=== PATIENT | female | born 1960 | race Caucasian/White ===

== ENCOUNTER → 2018-03-02 14:18 | Outpatient (CLI) | payer OTHER, SELFPAY ==
[2018-03-02 15:51] LABS: Absolute Lymphocyte Count 1.33 X10^3/ul (0.83-4.51); Absolute Neutrophil Count 2.7 X10^3/uL (2.0-7.7); Basophil# 0.04 X10^3/uL; Basophil% 0.9 % (0-1); Eosinophil# 0.12 X10^3/uL; Eosinophils% 2.6 % (0-5); Hematocrit 40.8 % (37-47); Lymphocyte # 1.33 X10^3/ul (4.0); Lymphocyte % 28.9 % (19-41); Mean Corp Hgb Conc 31.9 g/gl (32-36); Mean Corpuscular Volume 94.2 fL (81-99); Mean Platelet Vol. 9.9 fl (6.2-12.0); Monocyte# 0.42 X10^3/uL; Monocyte% 9.1 % (0-10); Neutrophil # 2.69 X10^3/uL (2.7-7.7); Neutrophil % 58.5 % (47-70); Platelet Count 255 K/mm3 (150-450); RBC Distribution Width CV 14.1 % (11.6-14.6); RBC Distribution Width SD 48.7 fl (35.1-43.9); Red Blood Count 4.33 M/mm3 (4.2-5.4); White Blood Count 4.6 K/mm3 (4.4-11.0)
[2018-03-02 15:52] LABS: POSITIVE COUNT NO; POSITIVE DIFFERENTIAL NO; POSITIVE MORPHOLOGY NO
[2018-03-02 16:17] LABS: ALB/GLOB Ratio 1.2 RATIO (0.9-2.4); AST(SGOT) 23 U/L (15-37); Alanine Aminotransfer ALT/SGPT 42 U/L (13-56); Alkaline Phosphatase 84 U/L (45-117); Anion Gap 10 (5-15); BUN 18 mg/dL (7-18); BUN/Creat Ratio 24.2 RATIO (10-20); Calcium,Total 9.4 mg/dL (8.5-10.1); Chloride 106 mmol/L (98-107); Creatinine, Serum 0.74 mg/dL (0.55-1.02); EST Glomerular Filtration Rate 85 mL/min (>60); Est Glom Filt Rate - Afr Amer 103 mL/min (>60); Globulin 3.3 g/dL (2.2-4.2); Glucose 83 mg/dL (74-106); Lipase 124 U/L (73-393); Potassium 4.4 mmol/L (3.5-5.1); Protein, Total 7.3 g/dL (6.4-8.2); Sodium Level 143 mmol/L (136-145)
--- OUTSIDE RECORDS SUMMARY | 2018-06-04 02:07 | XMS RPT_ITS ---
:1960 Author Organization OHIP Care Team Providers Name Role Phone RACHEL MCGOWAN (AUTO SERVICE DISPATCHER) Attending Unavailable RACHEL MCGOWAN (AUTO SERVICE DISPATCHER) Referring Unavailable Saravanan Man Attending Unavailable Saravanan Man Primary Care Unavailable Saravanan Man Attending Unavailable Saravanan Man Referring Unavailable Saravanan Man Primary Care Unavailable Nohemy Pedersen Attending Unavailable Saravanan Man Referring Unavailable Alexia Amado Attending Unavailable Alexia Amado Referring Unavailable Saravanan Man Primary Care Unavailable PROBLEMS PROBLEMS DATE TYPE CONDITION / CODE ATTENDING STATUS SOURCE 04/06/2018 Unknown N31.9 - Alexia Amado Active [facility] dysfunction of Hospital bladder, Repository unspecified / N31.9(ICD-10) 04/06/2018 Unknown R33.9 - Retention Alexia Amado Active [facility] of urine, Community unspecified / Hospital R33.9(ICD-10) Repository 04/02/2018 Unknown R19.05 - Saravanan Man Active [facility] swelling, mass or Hospital lump / Repository R19.05(ICD-10) 03/04/2018 Active Encounter for NA Active [facility] screening mammogram [facility] [place] for malignant Repository neoplasm of breast / Z12.31(ICD-10) 03/04/2018 Active Inconclusive NA Active [facility] mammogram / [facility] [place] R92.2(ICD-10) Repository 03/04/2018 Active 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[facility] mastopathy of [facility] [place] unspecified breast Repository / N60.19(ICD-10) 03/02/2018 Unknown R10.33 - Magda Saravanan Active [facility] / R10.33(ICD-10) Hospital Repository 03/02/2018 Unknown R11.0 - Nausea / Magda Saravanan Active [facility] R11.0(ICD-10) [facility] Hospital Repository 03/02/2018 Unknown R10.9 - Unspecified Saravanan Man Active [facility] abdominal pain / Community R10.9(ICD-10) Hospital Repository PROCEDURES PROCEDURES No Procedure Records FoundRESULTS RESULTS DISCHARGE INSTRUCTION Observed: 04/06/2018 Status: F Source: [place] 10:59 AM [facility] REPOSITORY [facility] Medical Records Department [address] [place] [address] Instructions for Home/Discharge Instructions 04/06/18 1058 MR#: [id number] Acct: [id number] Name: VINNIE KATHLEEN Rep #: [id number] : 1960 57 From: Alexia Amado MD PCP: Saravanan Man MD Status: REG [facility] Discharge Diet: No Restrictions Discharge Activity: May Not Drive, May not drive while taking narcotic pain medications. May resume sexual activity in: 4 weeks Call your doctor if your incision/area has: Continuous Slow Oozing, Sudden Increased Bleeding, Increased Pain/ Swelling, Increased Redness, Foul Smelling Discharge Call your doctor if you observe: Fever of 101 or Higher, Inability to urinate, Shortness of breath, Chest pain, Calf discomfort, Uncontrolled pain Allergies/Adverse Reactions: Allergies ciprofloxacin [From Cipro] Allergy (Verified 04/02/18 13:59) Rash mycin's Adverse Reaction (Uncoded 04/02/18 13:59) disoriented Medications to take at Discharge Multivitamin [Multiple Vitamins] 1 each PO DAILY 04/02/18 Cephalexin [Keflex] 500 mg PO Q12 3 Days #6 cap 04/06/18 Hydrocodone Bitart/Apap 5-325 [Anson 5MG-325MG] 1 tab PO Q4H PRN PRN 7 Days #20 tab 04/06/18 The following prescriptions were given: Hydrocodone Bitart/Apap 5-325 [Anson 5MG-325MG] 1 tab PO Q4H PRN PRN 7 Days #20 tab PRN Reason: Pain Cephalexin [Keflex] 500 mg PO Q12 3 Days #6 cap Primary Care Physician: Saravanan Man MD [Primary Care Provider] - Test Results: Test results from this visit will be discussed in further detail at your follow-up appointment, if applicable. Please Follow Up With: Alexia Amado MD When: 1 week, call for appt 04/06/18 1059 <Electronically signed by Alexia Amado MD> Date Alexia Amado MD CC: Saravanan Man MD Signed OPERATIVE REPORT Observed: 04/06/2018 Status: F Source: [place] 10:58 AM [facility] REPOSITORY [facility] Medical Records Department [address] [place] [address] Operative Report 04/06/18 1048 MR#: [id number] Acct: [id number] Name: VINNIE KATHLEEN Rep #: [id number] : 1960 57 From: Alexia Amado MD PCP: Saravanan Man MD Status: REG [facility] Y Location: [place] [address] Problem List (1) Urinary retention Status: Acute (2) Neurogenic bladder Status: Acute (3) Urinary frequency Status: Acute Report of Operation Date of Procedure: 04/06/18 Pre-Operative Diagnosis: urinary retention, urinary frequency, neurogenic bladder Post-Operative Diagnosis: same, mildly stenotic urethra Surgery/Procedure Performed:: cystoscopy, urethral dilation, Interstim Stage 1 Description of Surgical Findings:: Lead on left side, pocket on right. Good response leads 1,2,3. Good curve and placement into S3. Type of Anesthesia:: General Description of Procedure: The patient is a 57-year-old female seen in the office for issues regarding urinary frequency urgency and urinary hesitation. Upon evaluation she was identified as having a hypoactive detrusor contraction with urinary retention and a postvoid residual greater than 500 cc. She was unable to undergo cystoscopic evaluation in the office secondary to discomfort. After informed consent and discussing the risks she agreed to proceed with evaluation via cystoscopy in addition to stage I InterStim trial. Was taken in the operating room and a MAC anesthesia was provided with the patient's on her cart. Anesthesia monitored the head, neck, airway, IV access, vital signs throughout the case. Once anesthesia was probably administered patient was placed in a frog-leg position was prepped and draped in usual sterile fashion. The flexible cystoscope was unable to be inserted under direct visualization and the urethral dilation was performed from 16 Maltese to 22 Maltese without difficulty. The scope easily passed through the urethra into the urinary bladder under direct visualization following dilation. There are nor no mucosal abnormalities identified including areas of erythema, mass. There is no detrusor hyper hypertrophy identified. There were no foreign bodies. Her ureteral orifices were located along the area of the trigone in correct anatomic position. At this point the urethra was closely visualized and there were no defects identified. The cystoscope was removed and the patient was cleaned. She was then placed onto a prone position on the operating room table. She was appropriately padded and secured to the table. She was then prepped and draped in usual sterile fashion for stage I InterStim. At this time using fluoroscopic visualization the S3 foramen was identified. The area was anesthetized with lidocaine on both sides. [place] were passed on both the patient's right and left side. A better response was obtained on the patient's left side and this S3 foramen intubation was used. The obturator of the needle was removed the guidewire is passed and a skin incision was made. The dilator was then used to open the S3 entry point and the lead was inserted using the curved stylette. The leads were tested and with the best positioning of the lead there were good responses on leads I, II and III with jesús and toe. The lead was left in this position and was tunneled to a pocket site on the patient's right side. Cauterization was used for hemostatic control. The boot was attached and then the lead resident service coordinator. This was tunneled in a cephalad position. The pocket site was closed using 3-0 interrupted suture followed by 4-0 Vicryl subcuticular suture. Steri-Strips were applied. The temporary battery was connected and the patient had OpSite securing it in position followed by cloth tape. The patient was then awakened and taken to the recovery room in good condition. There were no complications during this procedure. Grafts/Implants Used: Stage 1 Interstim - Complications None - Admit VTE Documentation VTE Present on Admission: No VTE Mechan Device Prophylaxis: None VTE Pharm Prophylaxis ordered?: No Reason prophylaxis not ordered:: Treatment Not Indicated 04/06/18 1058 <Electronically signed by Alexia Amado MD> Date Alexia Amado MD CC: Alexia Amado MD; Saravanan Man MD Signed PELVIS 1 OR 2 VIEWS Observed: 04/06/2018 Status: F Source: [place] 12:09 AM [facility] REPOSITORY [facility] Imaging Services [address] [place] [address] Pelvis 1 or 2 Views MR#: [id number] Acct: [id number] Name: VINNIE KATHLEEN Rep #: [id number] : 1960 F 57 From: Tan Blair MD PCP: Saravanan Man MD Status: [facility] Study: Pelvis 1 or 2 Views Date of Exam: 04/06/18 Exam# [id number] Ordering Dr: Alexia Amado MD STUDY: X-RAY - PELVIS REASON FOR EXAM: Female, 57 years old. InterStim therapy. TECHNIQUE: One view of the pelvis was obtained. COMPARISON: None. FINDINGS: Intraoperative imaging provided for IntraStent placement. The electrode is seen along the right posterior aspect of the pelvis. RAD/Pelvis 1 or 2 Views IMPRESSION: Imaging provided for InterStim therapy. Electronically Signed: Tan Blair MD at 12:39 EST Tel [phone], Service support , CC: Alexia Amado MD; Saravanan Man MD Neurology Stroke Physician: Signed ABDOMEN/PELVIS WITH Observed: 03/23/2018 Status: F Source: [place] CONTRAST 8:22 AM [facility] REPOSITORY [facility] Imaging Services [address] [place] [address] Abdomen/Pelvis WITH Contrast MR#: [id number] Acct: [id number] Name: VINNIE KATHLEEN Rep #: [id number] : 1960 F 57 From: Lázaro Dexter MD PCP: Saravanan Man MD Status: REG CLI Study: Abdomen/Pelvis WITH Contrast Date of Exam: 03/23/18 Exam# [id number] Ordering Dr: Saravanan Man MD STUDY: CT ABDOMEN AND PELVIS WITH CONTRAST REASON FOR EXAM: Female, 57 years old. Periumbilical pain. Hypogastric mass. RADIATION DOSAGE (If Supplied By Facility): CTDIvol = ( 11.09 ) mGy, DLP = ( 543.69 ) mGycm TECHNIQUE: Transaxial images were obtained from the dome of the diaphragm to the symphysis pubis with oral contrast. 100 ml of Isovue 300 contrast was administered. Sagittal and coronal images were reconstructed. Individualized dose optimization techniques were used for this CT. COMPARISON: None. FINDINGS: The visualized lung bases are clear. The visualized portions of the heart and pericardium are within normal limits. There are no calcified gallstones present. The liver is within normal limits. There are no suspicious hepatic lesions. The spleen is normal in size. The pancreas is within normal limits. The adrenal glands are within normal limits. There are no renal or ureteral stones. There is no hydronephrosis. There are no focal renal lesions. Normal visualized stomach. There is no bowel obstruction or inflammation. The appendix is visualized and appears normal. The aorta is normal in caliber. There is no abdominal or pelvic free air, free fluid, fluid collection or lymphadenopathy. The uterus is normal in contour. There is no abnormal soft tissue mass identified on this study. There are no destructive osseous lesions. CT/Abdomen/Pelvis WITH Contrast IMPRESSION: Unremarkable contrast-enhanced CT of the abdomen and pelvis. Electronically Signed: Lázaro Dexter, at 17:00 EST Tel , Service support , CC: Saravanan Man MD Neurology Stroke Physician: Signed PROGRESS Observed: 03/05/2018 Status: COMPLETED Source: [facility] 3:18 PM [facility] REPOSITORY HNO ID: [id number] Author: Soila Truong Service: (none) Author Type: (none) Type: Progress Notes Filed: 03/05/2018 3:19 PM Note Text: Pap logged and normal pap letter sent to patient. Soila Truong CNCO Observed: 03/04/2018 Status: COMPLETED Source: [facility] 11:28 AM [facility] REPOSITORY HNO ID: [id number] Author: Mammography Coordinator Service: (none) Author Type: Physician Type: Letter Filed: 03/08/2018 11:31 PM Note Text: March 04, 2018 PID: [id number] Vinnie Kathleen [address] [place] [address] Dear Ms. Kathleen, We are pleased to inform you that the results of your recent breast imaging exam on 03/04/2018 are normal. Your mammogram demonstrates that you have dense breast tissue, which could hide abnormalities. Dense breast tissue, in and of itself, is a relatively common condition. Therefore, this information is not provided to cause undue concern; rather, it is to raise your awareness and promote discussion with your health care provider regarding the presence of dense breast tissue in addition to other risk factors. Early detection of cancer is very important. We also understand recommendations regarding breast cancer screening are controversial. Please discuss with your primary care provider which strategy is best for you and whether a mammogram is right for you. Your imaging studies and report will be kept on file at [facility] as part of your permanent medical record and are available for your continuing care. Thank you for allowing us to help in meeting your health care needs. Sincerely, Dr. Du Interpreting Radiologist [facility] (Normal over 40) OSIEL SCREENING W BALDOMERO Observed: 03/04/2018 Status: F Source: [facility] 11:13 AM [facility] REPOSITORY * * *Final Report* * * DATE OF EXAM: Mar 04 2018 11:13AM [facility] 0582 - OSIEL SCREENING W BALDOMERO / PROCEDURE REASON: multiple diagnoses * * * * Physician Interpretation * * * * RESULT: #[id number] - OSIEL SCREENING W BALDOMERO BILATERAL DIGITAL SCREENING MAMMOGRAM TOMOSYNTHESIS WITH CAD: 03/04/2018 HISTORY: Multiple Diagnoses\ Screening Mammogram with BALDOMERO - patient reports NO breast symptoms /priors available for comparison. RESULT: TECHNIQUE: The study was acquired using full field digital technology and interpreted from soft copy. Digital Breast Tomosynthesis (DBT) images were obtained and used to assist in the interpretation of this examination. Current study was also evaluated with a Computer Aided Detection (CAD). Comparison is made to exams dated: 02/01/2016 mammogram, 09/29/2014 mammogram, 02/16/2013 mammogram, and 01/27/2012 mammogram - [facility]. The tissue of both breasts is extremely dense, which lowers the sensitivity of mammography. There are biopsy clips in the left breast. No significant masses, calcifications, or other findings are seen in either breast. There has been no significant interval change. IMPRESSION: There is no mammographic evidence of malignancy. A 1 year screening mammogram is recommended. Олег Du M.D. fa/penrad:03/04/2018 11:28:54 Gear Design Engineer(s): RT Mike(R)(M), [facility] letter sent: Normal over 40 Mammogram BI-RADS: 1 Negative Multiple national specialty organizations have released breast cancer screening guidelines for women at average risk for developing breast cancer - guidelines that are based on both evidence and opinion, yet differ on when to start and how often to screen for breast cancer. With representation from Breast Imaging, Internal Medicine, Women's Health, Family Medicine, and Medical/Surgical Oncology, the [facility] has carefully reviewed the data and reached the following consensus: 1) All women should engage in shared decision-making with their providers to decide when to start and how often to screen; 2) All women should have the opportunity to start screening mammography at age 40; 3) For women ages 45-55, we recommend annual screening mammograms; 4) For women ages 55 and over, we support both the transition from an annual to a biennial interval if this aligns more with patient's values and preferences, or continuation with annual screening; 5) All women should discuss with their providers when to stop screening mammograms. Neurology Stroke Physician: Waleska Transcribe Date/Time: Mar 04 2018 11:15A Dictated by: ОЛЕГ DU MD This examination was interpreted and the report reviewed and electronically signed by: ОЛЕГ DU MD on Mar 04 2018 11:28AM EST [id number] CBC W/DIFF, AUTOMATED Collected: 03/02/2018 Status: F Source: [place] 2:30 PM [facility] REPOSITORY TYPE CODE TESTS RESULT OUT OF RANGE REFERENCE UNITS LAB L100.1000 4.4-11.0 K/mm3 Normal WBC 4.6 LAB L100.1200 4.2-5.4 M/mm3 Normal RBC 4.33 LAB L100.1300 12.0-15.0 g/dl Normal HGB 13.0 LAB L100.1400 37-47 % Normal HCT 40.8 LAB L100.1500 81-99 fL Normal MCV 94.2 LAB L100.1600 27.0-32.0 pg Normal MCH 30.0 LAB L100.1700 32-36 g/gl Low MCHC 31.9 LAB L100.1810 11.6-14.6 % Normal RDW CV 14.1 LAB L100.1820 35.1-43.9 fl High RDW SD 48.7 LAB L100.1900 150-450 K/mm3 Normal PLT 255 LAB L100.2000 6.2-12.0 fl Normal MPV 9.9 LAB L100.2100 47-70 % Normal NEUT% 58.5 LAB L100.2200 19-41 % Normal LY% 28.9 LAB L100.2300 0-10 % Normal MONO% 9.1 LAB L100.2400 0-5 % Normal EO% 2.6 LAB L100.2500 0-1 % Normal BASO% 0.9 LAB L100.2550 0.0-0.9 % Normal IM GRAN % 0.000 Result Comment: IG% - Immature Granulocytes (promyelocytes, myelocytes and metamyelocytes) > 1% indicates that a LEFT SHIFT is Present. LAB L100.2620 2.0-7.7 X10 3/uL Normal Absolute Neut 2.7 LAB L100.2720 0.83-4.51 X10 3/ul Normal Absolute Lymph 1.33 Performed By: #### L100.0100 #### [facility] [address] [place], [address] COMPREHENSIVE METABOLIC Collected: 03/02/2018 Status: F Source: [facility] 2:30 PM [facility] REPOSITORY TYPE CODE TESTS RESULT OUT OF RANGE REFERENCE UNITS LAB L501.0100 74-106 mg/dL Normal GLU 83 Result Comment: Please note revised GLUCOSE reference range effective 2017. LAB L501.1000 7-18 mg/dL Normal BUN 18 LAB L501.1100 0.55-1.02 mg/dL Normal CREAT,SERUM 0.74 Result Comment: The validity of the calculated GFR AND GFRAA in patients over 70 years has not been determined. Clinical correlation is essential. LAB L501.1110 >60 mL/min Normal EST GFR 85 Result Comment: Non- GFR Calc LAB L501.1115 >60 mL/min Normal EST GFR - AA 103 Result Comment: GFR Calc LAB L501.1300 10-20 RATIO High BUN/CRE 24.2 LAB L501.1500 6.4-8.2 g/dL T Normal PROT 7.3 LAB L501.1800 3.2-5.0 g/dL Normal ALB 4.0 LAB L501.1950 2.2-4.2 g/dL Normal GLOB 3.3 LAB L501.2000 0.9-2.4 RATIO Normal A/G 1.2 LAB L501.2200 8.5-10.1 mg/dL CA Normal 9.4 LAB L501.4100 15-37 U/L Normal AST 23 Result Comment: Slight Hemolysis, Result may be falsely increased. LAB L501.4305 45-117 U/L Normal ALK P 84 LAB L501.4405 13-56 U/L Normal ALT 42 LAB L501.4600 0.20-1.00 mg/dL Normal T BILI 0.40 LAB L501.5300 136-145 mmol/L Normal NA 143 LAB L501.5600 3.5-5.1 mmol/L Normal K 4.4 Result Comment: Slight Hemolysis, Result may be falsely increased. LAB L501.5900 98-107 mmol/L Normal CL 106 LAB L501.6100 21.0-32.0 mmol/L Normal CO2 27.0 LAB L501.6200 5-15 Normal GAP 10 Performed By: #### L500.4050, L501.2450 #### [facility] [address] [facility] [address] [facility] [place], [place], [address] LIPASE Collected: 03/02/2018 Status: F Source: [place] 2:30 PM [facility] REPOSITORY TYPE CODE TESTS RESULT OUT OF RANGE REFERENCE UNITS LAB L501.2450 73-393 U/L Normal LIPASE 124 Performed By: #### L500.4050, L501.2450 #### [facility] [address] [facility] [place], [place], [address] HPV W/GENOTYPE Collected: 02/25/2018 Status: F Source: [facility] 11:05 AM [facility] REPOSITORY TYPE CODE TESTS RESULT OUT OF REFERENCE UNITS RANGE LAB HPVT16 HPV HighRisk Negative for Type 16 HPV DNA high risk type 16 by PCR. LAB HPVT18 HPV HighRisk Negative for Type 18 HPV DNA high risk type 18 by PCR. LAB HPVHRO HPV HighRisk Negative for Other HPV DNA high risk types: 31,33,35,39,45 ,51,52,56,58,5 9,66,68 by PCR. Result Comment: This test was developed and its performance characteristics determined by [facility]'s [facility] [place] ([facility]). It has not been cleared or approved by the FDA. -[facility] is regulated under CLIA as qualified to perform high-complexity testing. This test is used for clinical purposes. It should not be regarded as inv estigational or for research. Performed By: #### HPVHRR #### [facility] [address] [place], [place] [address] CYTOLOGY Observed: 02/25/2018 Status: C Source: [facility] 11:05 [facility] REPOSITORY ADDITIONAL PROCEDURES PRESENT Specimen originated from [facility] Specimen #: [id number] Submitting Physician: RACHEL MCGOWAN SPECIMEN SUBMITTED A: CERVICAL, SCREENING, FLUID FINAL DIAGNOSIS A. CERVICAL, SCREENING, FLUID Satisfactory for interpretation. Negative for intraepithelial lesion or malignancy. Atrophic specimen. This specimen has been analyzed by the ThinPrep Imaging System, an automated imaging and review system, which assists the laboratory in evaluating cells on ThinPrep Pap tests. Following automated imaging, selected gabriel from every slide are reviewed by a safe and vault service mechanic. ALISHA Toribio(ASCP) (Electronic Signature) ADDITIONAL PROCEDURE(S) HUMAN PAPILLOMA VIRUS Date Ordered: 02/26/2018 Date Reported: 03/01/2018 Procedure Results and Interpretation Negative for HPV DNA high risk type 16 by PCR. Negative for HPV DNA high risk type 18 by PCR. Negative for HPV DNA high risk types: 31,33,35,39,45,51,52,56,58,59,66,68 by PCR. This test was developed and its performance characteristics determined by [facility]'s [facility]rick Jeong [facility] [place] ([facility]). It has not been cleared or approved by the FDA. -[facility] is regulated under CLIA as qualified to perform high-complexity testing. This test is used for clinical purposes. It should not be regarded as investigational or for research. CLINICAL DATA ROUTINE EXAM, HPV Testing: Yes, automatic HPV patients over 30 Date of Last Menstrual Period: Postmenopausal STAINS A: CERVICAL, SCREENING, FLUID THIN PREP TRIPPER Juliane Miller M.D., Contract Specialist Date of Report: 03/05/2018 Date of Procedure: 02/25/2018 Date of Receipt: 02/26/2018 Submitted by: RACHEL MCGOWAN Location: [facility] Diagnostic interpretation performed at [facility], [address] [place] [address]. The Pap Smear is a screening test for cervical cancer. False negative results occur with all screening tests, emphasizing the need for rescreening at recommended intervals, and clinical correlation. PROGRESS Observed: 02/25/2018 Status: COMPLETED Source: [facility] 10:25 AM [facility] REPOSITORY HNO ID: [id number] Author: Rachel Mcgowan Service: (none) Author Type: Nurse Practitioner Type: Progress Notes Filed: 02/25/2018 11:50 AM Note Text: Vinnie Kathleen is a 57 year old who presents for her annual gynecologic exam with complaints, bladder issues. The lack of urinating urge-she know she has to urinate when she starts to get pain in the lower abdominal/pelvic and then can't start a stream and only dribbles urine-never has a strong stream. Postmenopausal: Yes HRT use: No. Last Pap: 2013 normal HPV: 2013 negative History of abnormal pap: Yes Last mammogram: 2016 normal History of abnormal mammogram: Yes benign Sexually active: Yes Pain with intercourse: Yes Postcoital bleeding: No Hot flashes: No Night sweats: No Vaginal dryness: Yes Obstetric History T2 L2 SAB0 TAB0 Ectopic0 Multiple0 Live Births0 PAST MEDICAL HISTORY Diagnosis Date - Back pain - Headache - Kidney stone - Localization-related (focal) (partial) epilepsy and epileptic syndromes with simple partial seizures, without mention of intractable epilepsy As child, age 4-8, was on meds into her 30s PAST SURGICAL HISTORY Procedure Laterality Date - BX BREAST PERC VACUUM/ROTN 12/31/10 Left - benign - COLONOSCOP W/ OR W/O BRSH SPEC 04/13/13 Colonoscopy - CYST ASPIRATION right breast - CYST ASPIRATION left breast - EGD W/O OR W/BRUSH/WASH 04/13/13 EGD - PAST SURGICAL HISTORY OF 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 - Alcohol use No REVIEW OF SYSTEMS Abdomen: No abdominal pain, nausea, vomiting, diarrhea, or constipation. No bloating, early satiety, indigestion, or increased flatulence. Bladder: does not have the urge to urinate and will only dribble urine when she does go- denies any incontinence Breast: No breast lumps, nipple d/c, overlying skin changes, redness or skin retraction Allergies and current medication updated:Yes EXAM: BP 120/68 Ht 5' 2 (1.58m) Wt 159 lb 6.4 oz (72.3kg) LMP 09/02/2011 BMI 29.15 kg/(m2). GENERAL: pleasant, female in no apparent distress HEENT: Normocephalic, atraumatic, mucus membranes moist and no lesions NECK: Supple, full range of motion, no adenopathy and thyroid normal DERMATOLOGY: Normal, without lesions, non-icteric and non-hirsute BREAST: soft, non-tender, symmetric, no dominant mass, normal nipple-areolar complex, no lymphadenopathy, no nipple discharge and fibrocystic changes CHEST: Normal inspiratory effort ABDOMEN: soft, non-tender and no masses PELVIC: external genitalia normal, normal Bartholin's glands, urethra, Brandermill's glands, no vulvar lesions, no cervical lesions, good vaginal support, physiologic discharge present, normal appearing perineal body and perianal region BIMANUAL: uterus normal size, shape and consistency, no adnexal masses, non-tender and no cervical motion tenderness RECTOVAGINAL: deferred. NEURO: alert and oriented x3,exam grossly non-focal EXTREMITIES: normal ASSESSMENT/PLAN: 1) Health maintenance: Pap done with HPV. Mammogram ordered Nutrition, exercise and routine health maintenance exams reviewed. Calcium/Vitamin D supplementation information provided. Consult to Dr Amado for lack of urinary urge 2) Follow up one year or sooner as needed Rachel Mcgowan APRN.CNP CNOV Observed: 02/25/2018 Status: COMPLETED Source: [place] [address] [facility] 10:15 AM [facility] [place] REPOSITORY Office Visit (WOOB) VINNIE KATHLEEN ([id number]) 1960 F Date Time Provider Department 02/25/18 10:15 AM RACHEL MCGOWAN (ANA ROSA) WOOB During your visit today, we recorded the following information about you: Blood pressure Weight Height 120/68 72.3 kg 1.575 m Rachel Mcgowan APRN.CNP 02/25/2018 11:50 AM Signed Vinnie Kathleen is a 57 year old who presents for her annual gynecologic exam with complaints, bladder issues. The lack of urinating urge-she know she has to urinate when she starts to get pain in the lower abdominal/pelvic and then can't start a stream and only dribbles urine-never has a strong stream. Postmenopausal: Yes HRT use: No. Last Pap: 2013 normal HPV: 2013 negative History of abnormal pap: Yes Last mammogram: 2015 normal History of abnormal mammogram: Yes benign Sexually active: Yes Pain with intercourse: Yes Postcoital bleeding: No Hot flashes: No Night sweats: No Vaginal dryness: Yes Obstetric History T2 L2 SAB0 TAB0 Ectopic0 Multiple0 Live Births0 PAST MEDICAL HISTORY Diagnosis Date - Back pain - Headache - Kidney stone - Localization-related (focal) (partial) epilepsy and epileptic syndromes with simple partial seizures, without mention of intractable epilepsy As child, age 4-8, was on meds into her 30s PAST SURGICAL HISTORY Procedure Laterality Date - BX BREAST PERC VACUUM/ROTN 12/31/10 Left - benign - COLONOSCOP W/ OR W/O BRSH SPEC 04/13/13 Colonoscopy - CYST ASPIRATION right breast - CYST ASPIRATION left breast - EGD W/O OR W/BRUSH/WASH 04/13/13 EGD - PAST SURGICAL HISTORY OF 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 - Alcohol use No REVIEW OF SYSTEMS Abdomen: No abdominal pain, nausea, vomiting, diarrhea, or constipation. No bloating, early satiety, indigestion, or increased flatulence. Bladder: does not have the urge to urinate and will only dribble urine when she does go- denies any incontinence Breast: No breast lumps, nipple d/c, overlying skin changes, redness or skin retraction Allergies and current medication updated:Yes EXAM: BP 120/68 Ht 5' 2 (1.58m) Wt 159 lb 6.4 oz (72.3kg) LMP 09/02/2011 BMI 29.15 kg/(m2). GENERAL: pleasant, female in no apparent distress HEENT: Normocephalic, atraumatic, mucus membranes moist and no lesions NECK: Supple, full range of motion, no adenopathy and thyroid normal DERMATOLOGY: Normal, without lesions, non-icteric and non-hirsute BREAST: soft, non-tender, symmetric, no dominant mass, normal nipple-areolar complex, no lymphadenopathy, no nipple discharge and fibrocystic changes CHEST: Normal inspiratory effort ABDOMEN: soft, non-tender and no masses PELVIC: external genitalia normal, normal Bartholin's glands, urethra, Brandermill's glands, no vulvar lesions, no cervical lesions, good vaginal support, physiologic discharge present, normal appearing perineal body and perianal region BIMANUAL: uterus normal size, shape and consistency, no adnexal masses, non-tender and no cervical motion tenderness RECTOVAGINAL: deferred. NEURO: alert and oriented x3,exam grossly non-focal EXTREMITIES: normal ASSESSMENT/PLAN: 1) Health maintenance: Pap done with HPV. Mammogram ordered Nutrition, exercise and routine health maintenance exams reviewed. Calcium/Vitamin D supplementation information provided. Consult to Dr Amado for lack of urinary urge 2) Follow up one year or sooner as needed Rachel Mcgowan APRN.ANA ROSA Truong 03/05/2018 3:19 PM Signed Pap logged and normal pap letter sent to patient. Soila Truong Referring Provider: SELF [[id number]] Allergies As of Date: 02/25/2018 Noted Allergy Reaction ACROMYCIN (TETRACYCLINE) 11/13/2006 1 - Mental Status Change CIPROFLOXACIN 02/25/2018 1 - Mental Status Change 2 - Rash mycins [Other] 11/13/2006 Date Reviewed: 02/25/2018 Reviewed by: Rachel (Ana Rosa) Roslyn - Fully Assessed Reason for Visit: Yearly Exam [187] Primary Visit Diagnosis:Encounter for gynecological examination (general) (routine) without abnormal findings [Z01.419] Other Visit Diagnoses:Encounter for screening for human papillomavirus (HPV) [Z11.51] Pap smear for cervical cancer screening [Z12.4] Encounter for screening mammogram for breast cancer [Z12.31] Dense breast [R92.2] Fibrocystic breast disease (FCBD), unspecified laterality [N60.19] History of urinary urgency [Z87.448] Order(s):PAP FLUID CERVICAL SCREENING [3724841] Order #: [id number]. #:[id number] OSIEL SCREENING W BALDOMERO [3303043] Order #: [id number] FUTURE CONSULT TO UROLOGY [9041] Order #: [id number]: 1 HPV W/GENOTYPE [SQHPVHRR] Order #: [id number]. #:[id number] Prescriptions as of 02/25/2018 Sig: COMPOUNDED PRESCRIPTION serrapeptase enzyme * MULTIPLE VITAMIN TABLET Take one(1) tablet daily. Problem List As Of Date 02/25/2018 Noted Resolved DIFFUS CYSTIC MASTOPATHY [N60.19] INVALID FOR* SHORTNESS OF BREATH [R06.02] INVALID FOR* Fibromyalgia [M79.7] INVALID FOR* Family History of Cerebrovascular Accident (CVA*INVALID FOR* SVT (supraventricular tachycardia) [I47.1] INVALID FOR* Osteopenia [M85.80] INVALID FOR* More... Abnormal mammogram, unspecified [R92.8] INVALID FOR* Nontoxic multinodular goiter [E04.2] INVALID FOR* Disposition: Return in 1 year (on 02/25/2019) for Annual Exam. Follow-up and Disposition History Recorded Letter Text Rachel Mcgowan CNP [facility] [address], [place] [address] Vinniegaudencio Kathleen [address] [facility] [address] 03/05/2018 [facility]: [id number] Dear Vinnie, We are pleased to inform you that your recent Pap Test was within normal limits. Because Pap tests are so effective in the early detection of cervical cancer, you are encouraged to continue having the test at regular intervals. You will be due for a 1 year Gynecological Exam after this date 02/25/2019. If you have any questions regarding the above information, do not hesitate to call our office at between the hours of 8:00 a.m. and 5:00 p.m. Sincerely, Rachel Mcgowan CNP Encounter Status:Closed by RACHEL MCGOWAN on 02/25/18 ALLERGIES ALLERGIES DATE TYPE / CODE NAME / CODE REACTION SEVERITY SOURCE Drug ciprofloxacin/F00 Rash Unknown [place] 9 Allergy/[id number]( [id number](RXNORM) [facility]) Hospital Repository Miscellaneous mycin's DISORIENTED Unknown [place] 9 Allergy/253196013( [facility]) Hospital Repository DRUG CIPROFLOXACIN Mental [facility] 8 INGREDI/052511485( [facility] SNOMED CT) [place] Repository DRUG TETRACYCLINE Mental g [place] 7 INGREDI/596615269( [facility] SNOMED CT) [place] Repository Miscellaneous OTHER [place] 7 Allergy/295569067( [facility] SNOMED CT) [place] Repository ENCOUNTERS ENCOUNTERS ADMIT/DISCHARGE ACCOUNT ADMITTING ENCOUNTER LOCATION SOURCE NUMBER CLASS 04/06/2018/04/06/19 [id number] Ambulatory [place] [facility] ing:SDCRoom: Repository AC09 03/23/2018 [id number] [facility] 03/04/2018/03/04/20 [id number] Ambulatory [address] Repository 03/02/2018 [id number] Ambulatory [place] ing:BFHLAB Repository 02/25/2018/03/01/20 [id number] Ambulatory [address] Repository 06/16/2017 [id number] Ambulatory BMSBuilding:Moiz Tinajero MS.[facility] Repository PAYERS PAYERS ENCOUNTER GUARANTOR PAYER SUBSCRIBER SOURCE 04/06/2018 VINNIE Primary VINNIE [place] [id number] Insurance[facility] [address] [id number] [address]Qoj: Number: Repository [id number] (HP) Date:8344-03-24[address], [place] [address]UA: 04/06/2018 Secondary NOT GIVENUNK [place] Insurance:SELF PAY [facility] Number: Effective Repository Date:2018-04-01 03/23/2018 VINNIE Primary VINNIE [place] [id number] Insurance:UNITED TH BARRANQUITASDOB: [facility], [place] [id number] [id number] County Medical Center [address]Rqj: Number: Repository [id number] (HP) Date:5448-05-17[address], [place] [address]GO: 03/23/2018 Secondary NOT GIVENUNK [place] Insurance:SELF PAY [facility] Number: Effective Repository Date:2018-03-10 03/02/2018 VINNIE Primary VINNIE [place] [id number] Insurance:[facility]: [facility], CARE [address]Slfnys [id number] County Medical Center [address]Lvq: Number: Repository [id number] (HP) Date:6535-68-31[address], [place] [address]XW: 03/02/2018 Secondary NOT GIVENUNK [place] Insurance:SELF PAY [facility] Number: Effective Repository Date:2018-03-02 06/16/2017 Vinnie Primary Vinnie [place] [id number] Insurance[facility] [address]Woudru [id number] County Medical Center [address]Not: Number: Repository [id number] (HP) Date:4845-53-29[address], [place] [address]FX: 06/16/2017 Secondary NOT GIVENUNK [place] Insurance:SELF PAY [facility] Number: Effective Repository Date:2017-05-29
== END ==
LOC: BFHLAB 14:27
PROVIDERS: Family Provider Family Medicine; PCP Family Medicine; Visit Provider Family Medicine
DX: R10.33 Periumbilical pain (principal); R11.0 Nausea; R10.9 Unspecified abdominal pain
CPT/HCPCS: 36415; 80053; 83690; 85025

== ENCOUNTER → 2018-03-23 08:17 | Outpatient (CLI) | payer OTHER, SELFPAY ==
--- NOTE | 2018-03-23 08:21 | CT_ITS ---
STUDY: CT ABDOMEN AND PELVIS WITH CONTRAST REASON FOR EXAM: Female, 57 years old. Periumbilical pain. Hypogastric mass. RADIATION DOSAGE (If Supplied By Facility): CTDIvol = ( 11.09 ) mGy, DLP = ( 543.69 ) mGycm TECHNIQUE: Transaxial images were obtained from the dome of the diaphragm to the symphysis pubis with oral contrast. 100 ml of Isovue 300 contrast was administered. Sagittal and coronal images were reconstructed. Individualized dose optimization techniques were used for this CT. COMPARISON: None. FINDINGS: The visualized lung bases are clear. The visualized portions of the heart and pericardium are within normal limits. There are no calcified gallstones present. The liver is within normal limits. There are no suspicious hepatic lesions. The spleen is normal in size. The pancreas is within normal limits. The adrenal glands are within normal limits. There are no renal or ureteral stones. There is no hydronephrosis. There are no focal renal lesions. Normal visualized stomach. There is no bowel obstruction or inflammation. The appendix is visualized and appears normal. The aorta is normal in caliber. There is no abdominal or pelvic free air, free fluid, fluid collection or lymphadenopathy. The uterus is normal in contour. There is no abnormal soft tissue mass identified on this study. There are no destructive osseous lesions. CT/Abdomen/Pelvis WITH Contrast IMPRESSION: Unremarkable contrast-enhanced CT of the abdomen and pelvis. Electronically Signed: Lázaro Dexter, at 17:00 EST Tel , Service support ,
== END ==
PROVIDERS: Family Provider Family Medicine; PCP Family Medicine; Referring Provider Family Medicine; Visit Provider Family Medicine
DX: R19.05 Periumbilic swelling, mass or lump (principal); R10.33 Periumbilical pain; R11.0 Nausea
CPT/HCPCS: 74177; Q9967

== ENCOUNTER 2018-04-06 06:59 | Day surgery (SDC) | payer OTHER, SELFPAY ==
[2018-04-06] VITALS (7 sets, daily range): BP systolic 96–110; BP diastolic 59–85; PULSE 56–90; RESP 16–18; TEMP 36.6–36.8; O2SAT 97–100; BMI 29.2
[2018-04-06] MEDS: Cefazolin 2 GM in 0.9% Normal Saline 100 ML IV (09:08)
--- NOTE | 2018-04-06 09:39 | RAD_ITS ---
STUDY: X-RAY - PELVIS REASON FOR EXAM: Female, 57 years old. InterStim therapy. TECHNIQUE: One view of the pelvis was obtained. COMPARISON: None. FINDINGS: Intraoperative imaging provided for IntraStent placement. The electrode is seen along the right posterior aspect of the pelvis. RAD/Pelvis 1 or 2 Views IMPRESSION: Imaging provided for InterStim therapy. Electronically Signed: Tan Blair MD at 12:39 EST Tel [phone], Service support ,
--- NOTE | 2018-04-06 10:48 | PCM.OPRPT ---
Problem List (1) Urinary retention Status: Acute (2) Neurogenic bladder Status: Acute (3) Urinary frequency Status: Acute Report of Operation Date of Procedure: 04/06/18 Pre-Operative Diagnosis: urinary retention, urinary frequency, neurogenic bladder Post-Operative Diagnosis: same, mildly stenotic urethra Surgery/Procedure Performed:: cystoscopy, urethral dilation, Interstim Stage 1 Description of Surgical Findings:: Lead on left side, pocket on right. Good response leads 1,2,3. Good curve and placement into S3. Type of Anesthesia:: General Description of Procedure: The patient is a 57-year-old female seen in the office for issues regarding urinary frequency urgency and urinary hesitation. Upon evaluation she was identified as having a hypoactive detrusor contraction with urinary retention and a postvoid residual greater than 500 cc. She was unable to undergo cystoscopic evaluation in the office secondary to discomfort. After informed consent and discussing the risks she agreed to proceed with evaluation via cystoscopy in addition to stage I InterStim trial. Was taken in the operating room and a MAC anesthesia was provided with the patient's on her cart. Anesthesia monitored the head, neck, airway, IV access, vital signs throughout the case. Once anesthesia was probably administered patient was placed in a frog-leg position was prepped and draped in usual sterile fashion. The flexible cystoscope was unable to be inserted under direct visualization and the urethral dilation was performed from 16 [place] to 22 [place] without difficulty. The scope easily passed through the urethra into the urinary bladder under direct visualization following dilation. There are nor no mucosal abnormalities identified including areas of erythema, mass. There is no detrusor hyper hypertrophy identified. There were no foreign bodies. Her ureteral orifices were located along the area of the trigone in correct anatomic position. At this point the urethra was closely visualized and there were no defects identified. The cystoscope was removed and the patient was cleaned. She was then placed onto a prone position on the operating room table. She was appropriately padded and secured to the table. She was then prepped and draped in usual sterile fashion for stage I InterStim. At this time using fluoroscopic visualization the S3 foramen was identified. The area was anesthetized with lidocaine on both sides. Raymond were passed on both the patient's right and left side. A better response was obtained on the patient's left side and this S3 foramen intubation was used. The obturator of the needle was removed the guidewire is passed and a skin incision was made. The dilator was then used to open the S3 entry point and the lead was inserted using the curved stylette. The leads were tested and with the best positioning of the lead there were good responses on leads I, II and III with jesús and toe. The lead was left in this position and was tunneled to a pocket site on the patient's right side. Cauterization was used for hemostatic control. The boot was attached and then the lead forest fire fighters dispatcher. This was tunneled in a cephalad position. The pocket site was closed using 3-0 interrupted suture followed by 4-0 Vicryl subcuticular suture. Steri-Strips were applied. The temporary battery was connected and the patient had OpSite securing it in position followed by cloth tape. The patient was then awakened and taken to the recovery room in good condition. There were no complications during this procedure. Grafts/Implants Used: Stage 1 Interstim - Complications None - Admit VTE Documentation VTE Present on Admission: No VTE Mechan Device Prophylaxis: None VTE Pharm Prophylaxis ordered?: No Reason prophylaxis not ordered:: Treatment Not Indicated
--- NOTE | 2018-04-06 10:55 | OP.PCM_ITS ---
Problem List (1) Urinary retention Status: Acute (2) Neurogenic bladder Status: Acute (3) Urinary frequency Status: Acute Report of Operation Date of Procedure: 04/06/18 Pre-Operative Diagnosis: urinary retention, urinary frequency, neurogenic bladder Post-Operative Diagnosis: same, mildly stenotic urethra Surgery/Procedure Performed:: cystoscopy, urethral dilation, Interstim Stage 1 Description of Surgical Findings:: Lead on left side, pocket on right. Good response leads 1,2,3. Good curve and placement into S3. Type of Anesthesia:: General Description of Procedure: The patient is a 57-year-old female seen in the office for issues reg arding urinary frequency urgency and urinary hesitation. Upon evaluation she was identified as having a hypoactive detrusor contraction with urinary retention and a postvoid residual greater than 500 cc. She was unable to undergo cystoscopic evaluation in the office secondary to discomfort. After informed consent and discussing the risks she agreed to proceed with evaluation via cystoscopy in addition to stage I InterStim trial. Was taken in the operating room and a MAC anesthesia was provided with the patient's on her cart. Anesthesia monitored the head, neck, airway, IV access, vital signs throughout the case. Once anesthesia was probably administered patient was placed in a frog-leg position was prepped and draped in usual sterile fashion. The flexible cystoscope was unable to be inserted under direct visualization and the urethral dilation was performed from 16 [place] to 22 [place] without difficulty. The scope easily passed through the urethra into the urinary bladder under direct visualization following dilation. There are nor no mucosal abnormalities identified including areas of erythema, mass. There is no detrusor hyper hypertrophy identified. There were no foreign bodies. Her ureteral orifices were located along the area of the trigone in correct anatomic position. At this point the urethra was closely visualized and there were no defects identified. The cystoscope was removed and the patient was cleaned. She was then placed onto a prone position on the operating room table. She was appropriately padded and secured to the table. She was then prepped and draped in usual sterile fashion for stage I InterStim. At this time using fluoroscopic visualization the S3 foramen was identified. The area was anesthetized with lidocaine on both sides. [place] were passed on both the patient's right and left side. A better response was obtained on the patient's left side and this S3 foramen intubation was used. The obturator of the needle was removed the guidewire is passed and a skin incision was made. The dilator was then used to open the S3 entry point and the lead was inserted using the curved stylette. The leads were tested and with the best positioning of the lead there were good responses on leads I, II and III with jesús and toe. The lead was left in this position and was tunneled to a pocket site on the patient's right side. Ca uterization was used for hemostatic control. The boot was attached and then the lead compound specialist. This was tunneled in a cephalad position. The pocket site was closed using 3-0 interrupted suture followed by 4-0 Vicryl subcuticular suture. Steri-Strips were applied. The temporary battery was connected and the patient had OpSite securing it in position followed by cloth tape. The patient was then awakened and taken to the recovery room in good condition. There were no complications during this procedure. Grafts/Implants Used: Stage 1 Interstim - Complications None - Admit VTE Documentation VTE Present on Admission: No VTE Mechan Device Prophylaxis: None VTE Pharm Prophylaxis ordered?: No Reason prophylaxis not ordered:: Treatment Not Indicated
--- NOTE | 2018-04-06 10:59 | DCINST_ITS ---
Discharge Diet: No Restrictions Discharge Activity: May Not Drive, May not drive while taking narcotic pain medications. May resume sexual activity in: 4 weeks Call your doctor if your incision/area has: Continuous Slow Oozing, Sudden Increased Bleeding, Increased Pain/ Swelling, Increased Redness, Foul Smelling Discharge Call your doctor if you observe: Fever of 101 or Higher, Inability to urinate, Shortness of breath, Chest pain, Calf discomfort, Uncontrolled pain Allergies/Adverse Reactions: Allergies ciprofloxacin [From Cipro] Allergy (Verified 04/02/18 13:59) Rash mycin's Adverse Reaction (Uncoded 04/02/18 13:59) disoriented Medications to take at Discharge Multivitamin [Multiple Vitamins] 1 each PO DAILY 04/02/18 Cephalexin [Keflex] 500 mg PO Q12 3 Days #6 cap 04/06/18 Hydrocodone Bitart/Apap 5-325 [[place] 5MG-325MG] 1 tab PO Q4H PRN PRN 7 Days #20 tab 04/06/18 The following prescriptions were given: Hydrocodone Bitart/Apap 5-325 [[place] 5MG-325MG] 1 tab PO Q4H PRN PRN 7 Days #20 tab PRN Reason: Pain Cephalexin [Keflex] 500 mg PO Q12 3 Days #6 cap Primary Care Physician: Saravanan Man MD [Primary Care Provider] - Test Results: Test results from this visit will be discussed in further detail at your follow- up appointment, if applicable. Please Follow Up With: Alexia Amado MD When: 1 week, call for appt
--- OUTSIDE RECORDS SUMMARY | 2018-06-08 07:10 | XMS RPT_ITS ---
:1960 Author Organization OHIP Care Team Providers Name Role Phone RACHEL MCGOWAN (COPPERSMITH APPRENTICE) Referring Unavailable RACHEL MCGOWAN (ANA ROSA) Attending Unavailable Saravanan Man Attending Unavailable Saravanan Man Primary Care Unavailable Saravanan Man Attending Unavailable Saravanan Man Referring Unavailable Saravanan Man Primary Care Unavailable Nohemy Pedersen Attending Unavailable Saravanan Man Referring Unavailable Alexia Amado Attending Unavailable Alexia Amado Referring Unavailable Saravanan Man Primary Care Unavailable Saravanan Man Primary Care Unavailable Zahira Cabrales Attending Unavailable PROBLEMS PROBLEMS DATE TYPE CONDITION / CODE ATTENDING STATUS SOURCE 04/06/2018 Unknown N31.9 - Alexia Amado Active [facility] dysfunction of Hospital bladder, Repository unspecified / N31.9(ICD-10) 04/06/2018 Unknown R33.9 - Retention Alexia Amado Active [place] of urine, Community unspecified / Hospital R33.9(ICD-10) Repository 04/02/2018 Unknown R19.05 - Saravanan Man Active [facility] Periumbilic [facility] swelling, mass or Hospital lump / Repository R19.05(ICD-10) 03/04/2018 Active Encounter for NA Active [facility] screening mammogram [facility] [place] for malignant Repository neoplasm of breast / Z12.31(ICD-10) 03/04/2018 Active Inconclusive NA Active [facility] mammogram / [facility] [place] R92.2(ICD-10) Repository 03/04/2018 Active 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 breast Repository / N60.19(ICD-10) 03/02/2018 Unknown R10.33 - Saravanan Man Active [place] Periumbilical pain Community / R10.33(ICD-10) Hospital Repository 03/02/2018 Unknown R11.0 - Nausea / Saravanan Man Active [facility] R11.0(ICD-10) [facility] Hospital Repository 03/02/2018 Unknown R10.9 - Unspecified Saravanan Man Active [place] abdominal pain / Community R10.9(ICD-10) Hospital Repository PROCEDURES PROCEDURES No Procedure Records FoundRESULTS RESULTS DISCHARGE INSTRUCTION Observed: 04/08/2018 Status: F Source: [place] 9:18 PM [facility] REPOSITORY [facility] Medical Records Department [address] [place] [address] Discharge Instruction 04/08/18 1629 MR#: [id number] Acct: [id number] Name: VINNIE KATHLEEN Rep #: [id number] : 1960 57 From: Zahira Cabrales MD PCP: Saravanan Man MD Status: DEP ER ED Disposition - Plan for ED Patient: Disposition: Home or Assisted Living Chief Complaint: Other, Pain/Inj Instructions: ED Nausea Vomiting, ED Constipation Prescriptions: Ondansetron [Zofran Odt] 4 mg PO Q8H PRN PRN #15 tab PRN Reason: Nausea Referrals: Saravanan Man MD [Primary Care Provider] - Alexia Amado MD [STAFF PHYSICIAN] - 3-5 Days if not improving Additional Instructions: Use the Zofran as needed for any further nausea or vomiting. Drink plenty fluids to stay hydrated. Your constipation may be due to the Elberta. You may try a laxative or stool softener to take while you are on the Elberta. Miralax or dulcolax are possible options that you can buy over the counter. Make sure to keep your stimulator on low settings, and consult with your contact who is to help you monitor your stimulator settings. If you have any worsening of your condition or any new concerning symptoms, please return immediately to the emergency department for another evaluation. What to do if you have Problems For any increased pain, shortness of breath, bleeding, nausea or vomiting, chest pain, or any unexpected problems, contact your Primary Care Provider. Call [facility] ([phone]) or report to the closest Emergency Room. Call 911 if necessary. 04/08/182117 <Electronically signed by Zahira Cabrales MD> Date Zahira Cabrales MD Cosigner Signature (If Indicated): Date CC: Saravanan Man MD EMERGENCY DEPARTMENT Observed: 04/08/2018 Status: F Source: UNIVERSITY SUMMARY 9:18 PM [facility] REPOSITORY [facility] Medical Records Department [address] [place] [address] Emergency Department Summary 04/08/18 1513 MR#: [id number] Acct: [id number] Name: VINNIE KATHLEEN Rep #: [id number] : 1960 57 From: Zahira Cabrales MD PCP: Saravanan Man MD Status: DEP ER - ER Visit Summary Date of Service: 04/08/18 Chief Complaint: Vomiting History of Present Illness: The patient is a 57 F who presents with several episodes of vomiting 3 hours prior to presentation. Patient states she ate lunch and 10 minutes later began vomiting violently. She vomited multiple times, with the last episode being approximately 30 minutes prior to presentation. She denies any diarrhea. She had chills but no fever. No chest pain, shortness of breath, cough, congestion, rhinorrhea, headache, myalgias or arthralgias. 2 days ago patient had an InterStim device placed at the S3 level to help with urinary hesitancy. Patient states she has not had a bowel movement since then except for one very small hard one this morning. She normally has 3-4 bowel movements daily. She is on Elberta for pain. She denies any flatus. She complains of left perineal pain that feels like a deep bruise. She also complains of a bruised sensation on the right low back around the site of her procedure. Physical Examination: Vital signs: afebrile, hemodynamically stable, no hypoxia on room air General: well nourished, well developed, in no distress Skin: warm, dry, no rash, no pallor HEENT: normocephalic and atraumatic; PERRL, EOMI, moist mucous membranes Cardiovascular: Mildly tachycardic rate of 102 and regular rhythm without murmurs, no peripheral edema, 2+ pulses all distal extremities Respiratory: No increased work of breathing, lungs are clear to auscultation bilaterally, no rales, rhonchi or wheezing Abdominal: Abdomen is soft, nontender with hyperactive bowel sounds, no guarding or rebound, no masses, no distention Back: Clean bandaging holding a palpable battery pack in place on the right lumbar region. Surgical incision over the sacral midline region is covered with Steri-Strips, no bleeding, exudate, tenderness, induration or erythema surrounding. Mild tenderness to palpation along the right low back/hip without any induration, hematoma, or skin changes noted. MSK: Moves all extremities, no deformities, normal strength Neuro: Awake and alert, oriented 4. No facial droop, sensation and motor function intact and symmetric Test Results: Abnormal Lab Results Urine Color Yellow Urine Clarity Clear Medications Given Discontinued Medications Sodium Chloride () 1,000 mls @ 1,000 mls/hr IV .Q1H ONE Stop: 04/08/18 16:20 Last Admin: 04/08/18 15:39 Dose: 1,000 mls/hr Ondansetron HCl (Zofran) 4 mg IV X1 ONE Stop: 04/08/18 15:22 Last Admin: 04/08/18 15:39 Dose: 4 mg Emergency Department Course and Treatment: Presents for evaluation after several episodes of vomiting after eating lunch today. She is very well-appearing at this time and is not vomited at an hour at this point. Abdomen is soft and nontender, benign examination, and not consistent with bowel obstruction. Patient is on Elberta, which would explain the constipation. Patient was discussed with Alexia Amado, rest of the bandaging not be taken off, as it is holding the battery pack and wiring in place, and there are no incisions the bandaging. Patient's actual incision site is dry, intact, and she has no concerning findings for infection. Patient does complain of bruising in the perineal region and right low back, which is consistent with the procedures that were done on her. Patient was given IV fluids and antiemetics. Upon reevaluation, patient had improvement of her queasiness. Tolerating oral intake. Urinalysis was negative for infection. She was given a prescription for Zofran for further nausea. We discussed the use of a laxative or stool softener while she is taking Elberta. We discussed keeping her stimulator on a low setting, and she was staying in contact with the person she was referred to to help her with these settings. Discharged home in improved condition. Treatment Plan: [] Disposition: [] Impression: Vomiting illness, constipation This note was generated with Fugoo dictation software. It may contain incorrect words, spelling, and punctuation that were not noted in review of the chart prior to signing ED Disposition - Plan for ED Patient: Disposition: Home or Assisted Living Chief Complaint: Other, Pain/Inj Instructions: ED Constipation, ED Nausea Vomiting Prescriptions: Ondansetron [Zofran Odt] 4 mg PO Q8H PRN PRN #15 tab PRN Reason: Nausea Referrals: Alexia Amado MD [STAFF PHYSICIAN] - 3-5 Days if not improving Saravanan Man MD [Primary Care Provider] - Additional Instructions: Use the Zofran as needed for any further nausea or vomiting. Drink plenty fluids to stay hydrated. Your constipation may be due to the Elberta. You may try a laxative or stool softener to take while you are on the Elberta. Miralax or dulcolax are possible options that you can buy over the counter. Make sure to keep your stimulator on low settings, and consult with your contact who is to help you monitor your stimulator settings. If you have any worsening of your condition or any new concerning symptoms, please return immediately to the emergency department for another evaluation. What to do if you have Problems For any increased pain, shortness of breath, bleeding, nausea or vomiting, chest pain, or any unexpected problems, contact your Primary Care Provider. Call [facility] ([phone]) or report to the closest Emergency Room. Call 911 if necessary. 04/08/182117 <Electronically signed by Zahira Cabrales MD> Date Zahira Cabrales MD Cosigner Signature (If Indicated): Date CC: Saravanan Man MD URINALYSIS, COMPLETE Collected: 04/08/2018 Status: F Source: [place] 3:40 PM [facility] REPOSITORY Order Comment: How was Urine Obtained? CLEAN CATCH TYPE CODE TESTS RESULT OUT OF RANGE REFERENCE UNITS LAB L400.3000 Yellow COLOR Normal Yellow LAB L400.3050 Clear Normal CLARITY Clear LAB L400.3200 Normal mg/dl Normal GLUCOSE, UR Normal LAB L400.3300 Negative mg/dL Normal BILIRUBIN URINE Negative LAB L400.3400 Negative mg/dl High 50 KETONE UR LAB L400.3465 1.002-1.030 Normal SP.GR. DIPSTX 1.025 LAB L400.3550 5.0 - 8.0 pH UR Normal 6.0 LAB L400.3600 Negative mg/dl PROT Normal DIPSTX Negative LAB L400.3700 Normal mg/dl Normal UROBILI Normal LAB L400.3750 Negative Normal NITRITE UR Negative LAB L400.3780 Negative /ul High 10 OCCULT BLOOD-UR LAB L400.3800 Negative /ul LEUK Normal ESTERASE Negative LAB L400.4050 0-5 /hpf WBC 0 Normal SEEN LAB L400.4100 0-5 /hpf Normal RBC-UA 0-5 SEEN LAB L400.4150 5-10 /hpf SQUAM Normal EPI 0-5 SEEN LAB L400.4300 None Seen /hpf 0 Normal BACTERIA SEEN LAB L400.4350 <or=2+ /hpf 0 Normal MUCUS, URINE SEEN Performed By: #### L400.0001 #### [facility] Laboratory [address] [place], [address] Observed: 04/08/2018 Status: F Source: [place] CULTURE, URINE 3:40 PM [facility] REPOSITORY Urine Culture Culture exhibits no growth. Performed By: #### M100.0650 #### [facility] Laboratory [address] [place], [address] DISCHARGE INSTRUCTION Observed: 04/06/2018 Status: F Source: LI[place] 10:59 AM [facility] REPOSITORY [facility] Medical Records Department [address] [facility] [place] [address] Instructions for Home/Discharge Instructions 04/06/18 1058 MR#: [id number] Acct: [id number] Name: VINNIE KATHLEEN Rep #: [id number] : 1960 57 From: Alexia Amado MD PCP: Saravanna Man MD Status: REG [facility] Discharge Diet: No Restrictions Discharge Activity: May [...] Days #6 cap 04/06/18 Hydrocodone Bitart/Apap 5-325 [Elberta 5MG-325MG] 1 tab PO Q4H PRN PRN 7 Days #20 tab 04/06/18 The following prescriptions were given: Hydrocodone Bitart/Apap 5-325 [Elberta 5MG-325MG] 1 tab PO Q4H PRN PRN [...] OPERATIVE REPORT Observed: 04/06/2018 Status: F Source: UNIVERSITY 10:58 AM [facility] REPOSITORY [facility] Medical Records Department [address] [place] [address] Operative Report 04/06/18 1048 MR#: [id number] Acct: [id number] Name: VINNIE KATHLEEN Rep #: [id number] : 1960 57 From: Alexia Amado MD PCP: Saravanan Man MD Status: [facility] Y Location: [place] [address] Problem List (1) Urinary retention Status: Acute [...] the urethral dilation was performed from 16 [place] to 22 [place] without difficulty. The scope easily passed through [...] was anesthetized with lidocaine on both sides. [place] were passed on both the patient's right [...] boot was attached and then the lead industrial chemist. This was tunneled in a cephalad position. [...] 2 VIEWS Observed: 04/06/2018 Status: F Source: UNIVERSITY 12:09 AM [facility] REPOSITORY [facility] Imaging Services [address] [place] [address] Pelvis 1 or 2 Views MR#: [id number] Acct: [id number] Name: VINNIE KATHLEEN Rep #: [id number] : 1960 F 57 From: Tan Blair MD PCP: Saravanan Man MD Status: [facility] Study: Pelvis 1 or 2 Views Date of Exam: 04/06/18 Exam# [id number] Ordering Dr: Alexia Amado MD STUDY: X-RAY [...] Tan Blair MD at 12:39 EST Tel [phone], Service support , CC: Alexia Amado MD; Saravanan Man MD Territory Sales Representative: Signed ABDOMEN/PELVIS WITH Observed: 03/23/2018 Status: F Source: [place] CONTRAST 8:22 AM [facility] REPOSITORY [facility] Imaging Services [address] [place] [address] Abdomen/Pelvis WITH Contrast MR#: [id number] Acct: [id number] Name: VINNIE KATHLEEN Rep #: [id number] : 1960 F 57 From: Lázaro Dexter MD PCP: Saravanan Man MD Status: REG CLI Study: Abdomen/Pelvis WITH Contrast Date of Exam: 03/23/18 Exam# [id number] Ordering Dr: Saravanan Man MD STUDY: CT [...] Service support , CC: Saravanan Man MD Territory Sales Representative: Signed PROGRESS Observed: 03/05/2018 Status: COMPLETED Source: [place] 3:18 PM [facility] [place] REPOSITORY HNO ID: [id number] Author: Soila Truong Service: (none) Author Type: (none) Type: Progress Notes Filed: 03/05/2018 3:19 PM Note Text: Pap logged and normal pap letter sent to patient. Soila Alexi CNCO Observed: 03/04/2018 Status: COMPLETED Source: [place] 11:28 AM [facility] REPOSITORY HNO ID: [id number] Author: Mammography Coordinator Service: (none) Author Type: Physician Type: Letter Filed: 03/08/2018 11:31 PM Note Text: March 04, 2018 PID: [id number] Vinnie Kathleen [address] [place] [address] Dear Ms. RayKathleen, We are pleased to inform you that [...] report will be kept on file at [facility] as part of your permanent medical record and are available for your continuing care. Thank you for allowing us to help in meeting your health care needs. Sincerely, Dr. Du Interpreting Radiologist [facility] (Normal over 40) OSIEL SCREENING W [place] Observed: 03/04/2018 Status: F Source: [place] 11:13 AM [facility] REPOSITORY * * *Final Report* * * DATE OF EXAM: Mar 04 2018 11:13AM WRW 0582 - OSIEL SCREENING W [place] / PROCEDURE REASON: multiple diagnoses * * * * Physician Interpretation * * * * RESULT: #[id number] - OSIEL SCREENING W [place] BILATERAL DIGITAL [...] mammogram, 02/16/2013 mammogram, and 01/27/2012 mammogram - [facility]. The tissue of both breasts is extremely dense, which lowers the sensitivity of mammography. There are biopsy clips in the left breast. No significant masses, calcifications, or other findings are seen in either breast. There has been no significant interval change. IMPRESSION: There is no mammographic evidence of malignancy. A 1 year screening mammogram is recommended. Олег Du M.D. fa/penrad:03/04/2018 11:28:54 Coil Repair Technician(s): RT Mike(R)(M), [facility] letter sent: Normal over 40 [...] Health, Family Medicine, and Medical/Surgical Oncology, the [facility] has carefully reviewed the data and reached [...] their providers when to stop screening mammograms. Territory Sales Representative: [place] Transcribe Date/Time: Mar 04 2018 11:15A Dictated by: ОЛЕГ DU MD This examination was interpreted and the report reviewed and electronically signed by: ОЛЕГ DU MD on Mar 04 2018 11:28AM EST [id number] CBC W/DIFF, AUTOMATED Collected: 03/02/2018 Status: F Source: [place] 2:30 PM [facility] REPOSITORY TYPE CODE TESTS RESULT OUT OF [...] Lymph 1.33 Performed By: #### L100.0100 #### [facility] Laboratory [address] [place], [address] COMPREHENSIVE METABOLIC Collected: 03/02/2018 Status: F Source: [facility] [facility] 2:30 PM [facility] REPOSITORY TYPE CODE TESTS RESULT OUT OF [...] 10 Performed By: #### L500.4050, L501.2450 #### [facility] [address] [facility] [place], [address] LIPASE Collected: 03/02/2018 Status: F Source: UNIVERSITY 2:30 PM [facility] REPOSITORY TYPE CODE TESTS RESULT OUT OF RANGE REFERENCE UNITS LAB L501.2450 73-393 U/L Normal LIPASE 124 Performed By: #### L500.4050, L501.2450 #### [facility] [address] [facility] [place], [address] HPV W/GENOTYPE Collected: 02/25/2018 Status: F Source: [place] 11:05 AM [facility] REPOSITORY TYPE [...] developed and its performance characteristics determined by [facility]'s Erick Jeong [facility] Pathology and Laboratory Medicine [place] ([facility]). It has not been cleared or approved by the FDA. -[facility] is regulated under CLIA as qualified to perform high-complexity testing. This test is used for clinical purposes. It should not be regarded as inv estigational or for research. Performed By: #### HPVHRR #### [facility] [address] [place], [place] [address] CYTOLOGY Observed: 02/25/2018 Status: C Source: [place] 11:05 [facility] REPOSITORY ADDITIONAL PROCEDURES PRESENT Specimen originated from [facility] Specimen #: [id number] Submitting Physician: RACHEL MCGOWAN SPECIMEN SUBMITTED A: [...] from every slide are reviewed by a utility worker. ALISHA Toribio(ASCP) (Electronic Signature) ADDITIONAL PROCEDURE(S) HUMAN PAPILLOMA VIRUS Date Ordered: 02/26/2018 Date Reported: 03/01/2018 Procedure Results and Interpretation Negative for HPV DNA high risk type 16 by PCR. Negative for HPV DNA high risk type 18 by PCR. Negative for HPV DNA high risk types: 31,33,35,39,45,51,52,56,58,59,66,68 by PCR. This test was developed and its performance characteristics determined by [facility]'s Erick Jeong [facility] Pathology and Laboratory Medicine [facility] ([facility]). It has not been cleared or approved by the FDA. [facility] is regulated under CLIA as qualified to perform high-complexity testing. This test is used for clinical purposes. It should not be regarded as investigational or for research. CLINICAL DATA ROUTINE EXAM, HPV Testing: Yes, automatic HPV patients over 30 Date of Last Menstrual Period: Postmenopausal STAINS A: CERVICAL, SCREENING, FLUID THIN PREP COASTAL/HARBOR DEFENSE OFFICER Juliane Miller M.D., Air Control Electronics Operator Date of Report: 03/05/2018 Date of Procedure: 02/25/2018 Date of Receipt: 02/26/2018 Submitted by: RACHEL MCGOWAN Location: [facility] Diagnostic interpretation performed at [facility], [address] [place] [address]. The Pap Smear is a screening test for cervical cancer. False negative results occur with all screening tests, emphasizing the need for rescreening at recommended intervals, and clinical correlation. PROGRESS Observed: 02/25/2018 Status: COMPLETED Source: [place] 10:25 AM [facility] REPOSITORY HNO ID: [id number] Author: Rachel Contreras) [place] Service: (none) Author Type: Nurse Practitioner Type: [...] external genitalia normal, normal Bartholin's glands, urethra, [place]'s glands, no vulvar lesions, no cervical lesions, [...] APRN.CNP CNOV Observed: 02/25/2018 Status: COMPLETED Source: [place] 10:15 AM [facility] REPOSITORY Office Visit (WOOB) VINNIE KATHLEEN ([id number]) 1960 F Date Time Provider Department 02/25/18 [...] external genitalia normal, normal Bartholin's glands, urethra, [place]'s glands, no vulvar lesions, no cervical lesions, [...] 11/13/2006 Date Reviewed: 02/25/2018 Reviewed by: Rachel Contreras) Roslyn - Fully Assessed Reason for Visit: [...] urinary urgency [Z87.448] Order(s):PAP FLUID CERVICAL SCREENING [6209112] Order #: [id number]. #:[id number] OSIEL SCREENING W [place]DOM[place] [9169611] Order #: [id number] FUTURE CONSULT TO UROLOGY [9041] Order #: [id number]: 1 HPV W/GENOTYPE [SQHPVHRR] Order #: [id number]. #:[id number] Prescriptions as of 02/25/2018 Sig: COMPOUNDED PRESCRIPTION [...] Rachel Mcgowan CNP [facility] [address] [place], [place] [address] Vinnie Kathleen [address] [facility] [address] 03/05/2018 CCF: [id number] Dear Vinnie, We are pleased to inform [...] REACTION SEVERITY SOURCE Drug ciprofloxacin/F00 Rash Unknown [place] 9 Allergy/191400271( 9496915(RXNORM) [facility] SNOMED CT) Hospital Repository Miscellaneous mycin's DISORIENTED Unknown [place] 9 Allergy/902289422( [facility] SNOMED CT) Hospital Repository DRUG CIPROFLOXACIN Mental g [place] 8 INGREDI/577301200( [facility] SNOMED CT) [place] Repository DRUG TETRACYCLINE Mental g [place] 7 INGREDI/867403677( [facility] SNOMED CT) [place] Repository Miscellaneous OTHER [place] 7 Allergy/769318862( [facility] SNOMED CT) [place] Repository ENCOUNTERS ENCOUNTERS ADMIT/DISCHARGE ACCOUNT ADMITTING ENCOUNTER LOCATION SOURCE NUMBER CLASS 04/08/2018/04/08/19 [id number] Emergency [address] ing:ED Repository 04/06/2018/04/06/19 [id number] Ambulatory [address] ing:SDCRoom: Repository AC09 03/23/2018 [id number] Ambulatory [facility] ing:CT Repository 03/04/2018/03/04/20 [id number] Ambulatory [address] Repository 03/02/2018 [id number] Ambulatory [facility] ing:BFHLAB Repository 02/25/2018/03/01/20 [id number] Ambulatory [address] Repository 06/16/2017 [id number] Ambulatory BMSBuilding:Moiz Tinajero MS.[facility] Repository PAYERS PAYERS ENCOUNTER GUARANTOR PAYER SUBSCRIBER SOURCE 04/08/2018 VINNIE Primary VINNIE [place] [id number] Insurance:UNITED HLTH HENDERSONDOB: [facility] [address]Cauxax [phone] [address]Uoc: Number: Repository [id number] (HP) Date:4761-92-21TR [address], [place] [address]MG: 04/08/2018 Secondary NOT GIVENUNK [place] Insurance:SELF PAY [facility] Number: Effective Repository Date:2018-04-08 04/06/2018 VINNIE Primary VINNIE [place] [id number] Insurance:[facility], CARE [address]Bhjgxm [id number] Navajo Medical [facility] [address]Rnv: Number: Repository [id number] (HP) Date:6523-84-17TA [address], [place] [address]IV: 04/06/2018 Secondary NOT GIVENUNK Lior Insurance:SELF PAY [facility] Number: Effective Repository Date:2018-04-01 03/23/2018 VINNIE Primary VINNIE Lior [id number] Insurance:[facility], CARE [address] [id number] Navajo Medical Center [address]Ibd: Number: Repository [id number] (HP) Date:[id number], [place] [address]CZ: 03/23/2018 Secondary NOT GIVENUNK [place] Insurance:SELF PAY [facility] Number: Effective Repository Date:2018-03-10 03/02/2018 VINNIE Primary VINNIE Lior [id number] Insurance[facility], [facility] [id number] [id number] Navajo Medical Center [address]Ssx: Number: Repository [id number] (HP) Date:[id number], [place] [address]US: 03/02/2018 Secondary NOT GIVENUNK [place]ior Insurance:SELF PAY [facility] Number: Effective Repository Date:2018-03-02 06/16/2017 Vinnie Primary Vinniegaudencio Tinajero [id number] [facility] [id number] [id number] Navajo Medical Center [address]Leq: Number: Repository [id number] (HP) Date:[id number], [place] [address]QD: 06/16/2017 Secondary NOT GIVENUNK Lior Insurance:SELF PAY [facility] Number: Effective Repository Date:2017-05-29
== END 2018-04-06 12:03 | disposition home or self-care (01) ==
LOC: SDC 07:00 → AC 07:02
PROVIDERS: Family Provider Family Medicine; PCP Family Medicine; Referring Provider Urology; Visit Provider Urology
PROC: (CPT 52281; principal; 2018-04-06 08:40)
DX: N31.9 Neuromuscular dysfunction of bladder, unspecified (principal); R35.0 Frequency of micturition; R39.11 Hesitancy of micturition; R35.1 Nocturia; R39.12 Poor urinary stream; Z87.891 Personal history of nicotine dependence
CPT/HCPCS: 52281; 64581; 64590; 72170; 76000; J7120; C1778; J2405

== ENCOUNTER 2018-04-08 14:46 | Emergency (ER) | payer OTHER, SELFPAY ==
[2018-04-06 07:41] VITALS: BMI 29.2
[2018-04-08 14:47] VITALS: BP 125/82; PULSE 102; RESP 16; TEMP 36.7; O2SAT 98; BMI 29.0
--- NOTE | 2018-04-08 15:13 | ED.VISSUMM ---
- ER Visit Summary Date of Service: 04/08/18 Chief Complaint: Vomiting History of Present Illness: The patient is a 57 F who presents with several episodes of vomiting 3 hours prior to presentation. Patient states she ate lunch and 10 minutes later began vomiting violently. She vomited multiple times, with the last episode being approximately 30 minutes prior to presentation. She denies any diarrhea. She had chills but no fever. No chest pain, shortness of breath, cough, congestion, rhinorrhea, headache, myalgias or arthralgias. 2 days ago patient had an InterStim device placed at the S3 level to help with urinary hesitancy. Patient states she has not had a bowel movement since then except for one very small hard one this morning. She normally has 3-4 bowel movements daily. She is on [place] for pain. She denies any flatus. She complains of left perineal pain that feels like a deep bruise. She also complains of a bruised sensation on the right low back around the site of her procedure. Physical Examination: Vital signs: afebrile, hemodynamically stable, no hypoxia on room air General: well nourished, well developed, in no distress Skin: warm, dry, no rash, no pallor HEENT: normocephalic and atraumatic; PERRL, EOMI, moist mucous membranes Cardiovascular: Mildly tachycardic rate of 102 and regular rhythm without murmurs, no peripheral edema, 2+ pulses all distal extremities Respiratory: No increased work of breathing, lungs are clear to auscultation bilaterally, no rales, rhonchi or wheezing Abdominal: Abdomen is soft, nontender with hyperactive bowel sounds, no guarding or rebound, no masses, no distention Back: Clean bandaging holding a palpable battery pack in place on the right lumbar region. Surgical incision over the sacral midline region is covered with Steri-Strips, no bleeding, exudate, tenderness, induration or erythema surrounding. Mild tenderness to palpation along the right low back/hip without any induration, hematoma, or skin changes noted. MSK: Moves all extremities, no deformities, normal strength Neuro: Awake and alert, oriented ?4. No facial droop, sensation and motor function intact and symmetric Test Results: Abnormal Lab Results 04/08/18 15:40 Urine Color Yellow Urine Clarity Clear Urine pH 6.0 Ur Specific [place] 1.025 Urine Protein Negative Urine Glucose (UA) Normal Urine Ketones 50 H Urine Occult Blood 10 H Urine Nitrite Negative Urine Bilirubin Negative Urine Urobilinogen Normal Ur Leukocyte Esterase Negative Urine RBC 0-5 SEEN Urine WBC 0 SEEN Ur Squamous Epith Cells 0-5 SEEN Urine Bacteria 0 SEEN Urine Mucus 0 SEEN Medications Given Discontinued Medications Sodium Chloride () 1,000 mls @ 1,000 mls/hr IV .Q1H ONE Stop: 04/08/18 16:20 Last Admin: 04/08/18 15:39 Dose: 1,000 mls/hr Ondansetron HCl (Zofran) 4 mg IV X1 ONE Stop: 04/08/18 15:22 Last Admin: 04/08/18 15:39 Dose: 4 mg Emergency Department Course and Treatment: Presents for evaluation after several episodes of vomiting after eating lunch today. She is very well-appearing at this time and is not vomited at an hour at this point. Abdomen is soft and nontender, benign examination, and not consistent with bowel obstruction. Patient is on [place], which would explain the constipation. Patient was discussed with Alexia Amado, rest of the bandaging not be taken off, as it is holding the battery pack and wiring in place, and there are no incisions the bandaging. Patient's actual incision site is dry, intact, and she has no concerning findings for infection. Patient does complain of bruising in the perineal region and right low back, which is consistent with the procedures that were done on her. Patient was given IV fluids and antiemetics. Upon reevaluation, patient had improvement of her queasiness. Tolerating oral intake. Urinalysis was negative for infection. She was given a prescription for Zofran for further nausea. We discussed the use of a laxative or stool softener while she is taking [place]. We discussed keeping her stimulator on a low setting, and she was staying in contact with the person she was referred to to help her with these settings. Discharged home in improved condition. Treatment Plan: [] Disposition: [] Impression: Vomiting illness, constipation This note was generated with [employer] dictation software. It may contain incorrect words, spelling, and punctuation that were not noted in review of the chart prior to signing ED Disposition - Plan for ED Patient: Disposition: Home or Assisted Living Chief Complaint: Other, Pain/Inj Instructions: ED Constipation, ED Nausea Vomiting Prescriptions: Ondansetron [Zofran Odt] 4 mg PO Q8H PRN PRN #15 tab PRN Reason: Nausea Referrals: Alexia Amado MD [STAFF PHYSICIAN] - 3-5 Days if not improving Saravanan Man MD [Primary Care Provider] - Additional Instructions: Use the Zofran as needed for any further nausea or vomiting. Drink plenty fluids to stay hydrated. Your constipation may be due to the [place]. You may try a laxative or stool softener to take while you are on the [place]. Miralax or dulcolax are possible options that you can buy over the counter. Make sure to keep your stimulator on low settings, and consult with your contact who is to help you monitor your stimulator settings. If you have any worsening of your condition or any new concerning symptoms, please return immediately to the emergency department for another evaluation.
[2018-04-08] MEDS: 0.9% Normal Saline 1,000 ML 1000 ML IV (15:39)
[2018-04-08] MEDS: Ondansetron 4 MG/2 ML Vial IV (15:39)
[2018-04-08 16:08] LABS: Bacteria 0 SEEN /hpf (None Seen); Mucous, Urine 0 SEEN /hpf (<or=2+); White Blood Cells 0 SEEN /hpf (0-5)
[2018-04-08 16:10] LABS: Color, Urine Yellow (Yellow); Glucose, Dipstick Normal (Normal); Ketone-Dipstick 50 mg/dl (Negative); Leukocyte Esterase-Dipstick Negative /ul (Negative); Nitrite-Dipstick Negative (Negative); Occult Blood-Urine 10 /ul (Negative); Protein-Dipstick Negative (Negative); Specific Gravity, Urine 1.025 (1.002-1.030); Urine Bilirubin Dipstick Negative (Negative); Urine Clarity Clear (Clear); Urine Urobilinogen Normal (Normal)
[2018-04-08 16:25] LABS: Red Blood Cells-Urine 0-5 SEEN /hpf (0-5); Squamous Epithelial Cells - UA 0-5 SEEN /hpf (5-10)
--- NOTE | 2018-04-08 16:29 | ED.DEP ---
ED Disposition - Plan for ED Patient: Disposition: Home or Assisted Living Chief Complaint: Other, Pain/Inj Instructions: ED Nausea Vomiting, ED Constipation Prescriptions: Ondansetron [Zofran Odt] 4 mg PO Q8H PRN PRN #15 tab PRN Reason: Nausea Referrals: Saravanan Mna MD [Primary Care Provider] - Alexia Amado MD [STAFF PHYSICIAN] - 3-5 Days if not improving Additional Instructions: Use the Zofran as needed for any further nausea or vomiting. Drink plenty fluids to stay hydrated. Your constipation may be due to the [place]. You may try a laxative or stool softener to take while you are on the [place]. Miralax or dulcolax are possible options that you can buy over the counter. Make sure to keep your stimulator on low settings, and consult with your contact who is to help you monitor your stimulator settings. If you have any worsening of your condition or any new concerning symptoms, please return immediately to the emergency department for another evaluation.
--- NOTE | 2018-04-08 16:32 | DCINST.ED_ITS ---
ED Disposition - Plan for ED Patient: Disposition: Home or Assisted Living Chief Complaint: Other, Pain/Inj Instructions: ED Nausea Vomiting, ED Constipation Prescriptions: Ondansetron [Zofran Odt] 4 mg PO Q8H PRN PRN #15 tab PRN Reason: Nausea Referrals: Saravanan Man MD [Primary Care Provider] - Alexia Amado MD [STAFF PHYSICIAN] - 3-5 Days if not improving Additional Instructions: Use the Zofran as needed for any further nausea or vomiting. Drink plenty fluids to stay hydrated. Your constipation may be due to the [place]. You may try a laxative or stool softener to take while you are on the [place]. Miralax or dulcolax are possible options that you can buy over the counter. Make sure to keep your stimulator on low settings, and consult with your contact who is to help you monitor your stimulator settings. If you have any worsening of your condition or any new concerning symptoms, please return immediately to the emergency department for another evaluation.
[2018-04-08 16:48] VITALS: BP 118/72; PULSE 92; RESP 17; O2SAT 95
--- NOTE | 2018-04-08 16:48 | ED.RN ---
IV DC'ED, CATHETER INTACT, SMALL GAUZE DRESSING PLACED. DISCHARGE INSTRUCTIONS GIVEN TO AND REVIEWED WITH PATIENT, PATIENT DENIES QUESTIONS OR CONCERNS AND VOICES UNDERSTANDING OF DISCHARGE INSTRUCTIONS. PT AMBULATES OUT OF ROOM WITHOUT DIFFICULTY.
== END 2018-04-08 16:49 | disposition home or self-care (01) ==
PROVIDERS: Emergency Provider Emergency Medicine; Family Provider Family Medicine; PCP Family Medicine
DX: R11.10 Vomiting, unspecified (principal); K59.00 Constipation, unspecified; Z79.891 Long term (current) use of opiate analgesic; Z98.890 Other specified postprocedural states
CPT/HCPCS: 81001; 87086; 96361; 96374; 99283; J7030; A4216; J2405

== ENCOUNTER 2018-04-13 08:55 | Day surgery (SDC) | payer OTHER, SELFPAY ==
[2018-04-13 09:30] VITALS: BP 92/70; PULSE 64; RESP 16; TEMP 37.1; O2SAT 96; BMI 28.7
--- NOTE | 2018-04-13 10:27 | PCM.OPRPT ---
Problem List (1) Urinary retention Status: Acute (2) Neurogenic bladder Status: Acute (3) Urinary frequency Status: Acute Report of Operation Date of Procedure: 04/13/18 Pre-Operative Diagnosis: urinary retention, neurogenic bladder, urinary frequency. Post-Operative Diagnosis: same Surgery/Procedure Performed:: removal Interstim Stage 1 Description of Surgical Findings:: Interstim lead and extension removed without difficulty. bit sander: Alexia Amado Type of Anesthesia:: MAC Description of Procedure: The patient is a 57-year-old female found to have a neurogenic bladder with urinary retention and urinary frequency. After full evaluation she underwent a stage I InterStim approximately 1 week ago. She has had significant pain since that time and has had no improvement in her voiding. She decided to proceed with removal of InterStim stage I. All risks benefits and alternatives were discussed. Patient was taken to the operating room and anesthesia was administered. She was placed in a prone position on the operating room table and was appropriately padded and secured to the table. Anesthesia monitored the head, neck, airway, IV access and vital signs throughout the case. Once the patient was appropriately positioned and comfortable, she was prepped and draped in usual sterile fashion. Her previous incision sites were identified including one over the lead insertion site and one in the right buttocks. These areas were infiltrated with 1% lidocaine with epinephrine. The incisions were then opened using hemostats and the Vicryl sutures were cut using Metzen[place]ums. The lead was identified in the sacral incision and was grasped with hemostats. The boot was identified in the pocket site and was brought into the field. The lead was cut at the pocket site and the lead in its entirety was removed from the sacral incision. Plate lead extension was removed externally. The boot was removed from the buttocks incision. The entire unit was removed. Both the sacral incision and the pocket site were irrigated. She was closed with 3-0 Vicryl interrupted suture followed by 4-0 subcuticular suture and Dermabond was applied. The patient tolerated the procedure well and was awakened and taken to the recovery room in good condition. There were no complications during the procedure. - Complications none - Admit VTE Documentation VTE Present on Admission: Yes VTE Mechan Device Prophylaxis: SCD's VTE Pharm Prophylaxis ordered?: No Reason prophylaxis not ordered:: Treatment Not Indicated
--- NOTE | 2018-04-13 10:30 | PCM.DC.URO ---
Discharge Diet: No Restrictions Discharge Activity: May not drive while taking narcotic pain medications. Call your doctor if your incision/area has: Sudden Increased Bleeding, Increased Pain/ Swelling, Increased Redness Call your doctor if you observe: Fever of 101 or Higher, Shortness of breath, Chest pain, Calf discomfort, Uncontrolled pain Allergies/Adverse Reactions: Allergies ciprofloxacin [From Cipro] Allergy (Verified 04/02/18 13:59) Rash mycin's Adverse Reaction (Uncoded 04/02/18 13:59) disoriented Medications to take at Discharge Multivitamin [Multiple Vitamins] 1 each PO DAILY 04/02/18 Ondansetron [Zofran Odt] 4 mg PO Q8H PRN PRN #15 tab 04/08/18 Hydrocodone Bitart/Apap 5-325 [[place] 5MG-325MG] 1 tab PO Q4H PRN PRN 7 Days #20 tab 04/13/18 The following prescriptions were given: Hydrocodone Bitart/Apap 5-325 [[place] 5MG-325MG] 1 tab PO Q4H PRN PRN 7 Days #20 tab PRN Reason: Pain Primary Care Physician: Saravanan aMn MD [Primary Care Provider] - Test Results: Test results from this visit will be discussed in further detail at your follow-up appointment, if applicable. Please Follow Up With: Alexia Amado MD When: 1 week, call for appt Proposed Discharge Date: 04/13/18
[2018-04-13] MEDS: Cefazolin 2 GM in 0.9% Normal Saline 100 ML IV (10:48)
[2018-04-13 11:26] VITALS: BP 103/64; BP 92/70; PULSE 54; RESP 14; TEMP 36.2; O2SAT 98
[2018-04-13 11:31] VITALS: BP 103/65; BP 92/70; PULSE 49; RESP 14; O2SAT 99
[2018-04-13 11:36] VITALS: BP 106/65; BP 92/70; PULSE 52; RESP 14; O2SAT 98
[2018-04-13 11:40] VITALS: BP 109/66; BP 92/70; PULSE 55; RESP 14; TEMP 35.8; O2SAT 99
[2018-04-13 12:31] VITALS: BP 92/70
--- NOTE | 2018-04-23 12:56 | PCM.HP.STD ---
Problem List (1) Urinary retention Status: Acute (2) Neurogenic bladder Status: Acute (3) Urinary frequency Status: Acute History of Present Illness Date of Admission: 04/13/18 Chief Complaint: urinary retention The patient is a 57 year old F who underwent a stage I trial InterStim for urinary retention. She had no improvement in her symptoms of the lead. In addition to this she had extensive pain in her leg and her back from the procedure. She desired removal of the InterStim head of the trial schedule. Risks benefits and alternatives were discussed and informed consent was obtained. Past Medical History Allergies ciprofloxacin [From Cipro] Allergy (Verified 04/02/18 13:59) Rash mycin's Adverse Reaction (Uncoded 04/02/18 13:59) disoriented Home Medications: Ambulatory Orders Medication Instructions Recorded Multivitamin [Multiple Vitamins] 1 each PO DAILY 04/02/18 Ondansetron [Zofran Odt] 4 mg PO Q8H PRN PRN #15 tab 04/08/18 Smoking Status: Former smoker Tobacco Use: Non-smoker Review of Systems Constitutional: Denies: Anorexia, Chills, Fever, Night Sweats Eyes: Denies: Blurred vision HEENT: Reports: Difficulty Swallowing. Denies: Difficulty Hearing, Visual Changes Cardiovascular: Denies: Chest Pain Respiratory: Denies: Cough, Shortness of Breath Gastrointestinal: Denies: Abdominal Pain Genitourinary: Reports: Hesitancy, Retention. Denies: Dysuria Gynecological: Denies: Breast symptoms Musculoskeletal: Reports: Leg Pain Skin: Denies: Rash Neurological: Denies: Balance problems Psychiatric: Reports: Depression Endocrine: Denies: Change in Body Habitus Hematologic/ Lymphatic: Denies: Adenopathy VTE Information - Inpt Only VTE Present on Admission: Yes VTE Mechan Device Prophylaxis: SCD's VTE Pharm Prophylaxis ordered?: No Reason prophylaxis not ordered:: Treatment Not Indicated - Physical Exam General: Alert, Oriented x3, Cooperative HEENT: Atraumatic, Normocephalic Oral: Moist Mucosa Neck: Supple Lungs: Clear to auscultation, Normal air movement Cardiovascular: Regular rate, Regular Rhythm Abdomen: Soft, Non Tender Extremities: No Calf Tenderness Skin: No rashes Musculoskeletal: No Muscle Wasting Lymphatic: No Cervical, Supraclavicular, or Inguinal Adenopathy Neurological: Cranial nerves II-XII grossly intact, Neuro grossly intact Psych/Mental Status: Depressed Vital Signs Temp Pulse Resp BP Pulse Ox 96.5 F L 55 L 14 109/66 99 04/13/18 11:40 04/13/18 11:40 04/13/18 11:40 04/13/18 11:40 04/13/18 11:40 Oxygen Delivery Method Room Air Weight: 71.2 kg Body Mass Index (BMI) 28.7 Assessment/Plan All Active Problems Urinary retention (Acute) Neurogenic bladder (Acute) Urinary frequency (Acute) Removal of Interstim Stage 1
== END 2018-04-13 12:32 | disposition home or self-care (01) ==
LOC: SDC 08:56 → AC 08:57
PROVIDERS: Family Provider Family Medicine; PCP Family Medicine; Referring Provider Urology; Visit Provider Urology
PROC: (CPT 64585; principal; 2018-04-13 10:30)
DX: T85.840A Pain due to nervous system prosthetic devices, implants and grafts, initial encounter (principal); R33.9 Retention of urine, unspecified; N31.9 Neuromuscular dysfunction of bladder, unspecified; R35.0 Frequency of micturition; Z87.891 Personal history of nicotine dependence
CPT/HCPCS: 64585; J7120

== ENCOUNTER → 2019-06-22 12:57 | Outpatient (CLI) | payer OTHER, SELFPAY ==
--- NOTE | 2019-06-22 13:07 | RAD_ITS ---
STUDY: X-RAY CHEST REASON FOR EXAM: Female, 59 years old. SOB, HX PLEURISY -- feels like she can''t take in a deep breath -- left sided anterior rib pain when taking in a deep breath TECHNIQUE: PA and lateral views of the chest. COMPARISON: Comparison is made with prior examination October 22, 2015. FINDINGS: Hyperinflation. Scattered calcified granulomas. There is no demonstrated pleural abnormality. Normal size heart. Normal mediastinum and eagle. Normal visualized pulmonary arteries. Normal visualized aortic arch and descending thoracic aorta. Normal visualized thoracic spine. Normal visualized ribs, clavicles, and shoulders. There is no demonstrated abnormality of the visualized soft tissue structures of the upper abdomen. RAD/Chest PA and Lateral IMPRESSION: Hyperinflation. Scattered calcified granulomas. Electronically Signed: Tan Blair, at 13:41 EDT , Service support ,
== END ==
PROVIDERS: PCP Family Medicine; Referring Provider Family Medicine; Visit Provider Family Medicine
DX: R06.02 Shortness of breath (principal)
CPT/HCPCS: 71046

== ENCOUNTER 2019-06-23 10:27 | Emergency (ER) | payer OTHER, SELFPAY ==
[2019-06-23 10:27] VITALS: BP 136/78; PULSE 68; RESP 20; TEMP 37; O2SAT 99; BMI 29.5
--- NOTE | 2019-06-23 10:54 | EKG12_ITS ---
Test Reason : SOB Blood Pressure : / mmHG Vent. Rate : 050 BPM Atrial Rate : 050 BPM P-R Int : 140 ms QRS Dur : 094 ms QT Int : 472 ms P-R-T Axes : 071 073 066 degrees QTc Int : 430 ms Sinus bradycardia Cannot rule out Anterior infarct , age undetermined Abnormal ECG Confirmed by DANISH RUIZ, THOMAS ([id number]), subeditor ANTIONETTE KRUEGER ([id number]) on 06/27/2019 8:31:47 AM Referred By: APCO Confirmed By:THOMAS PENG MD
--- NOTE | 2019-06-23 10:58 | ED.DCSUM_ITS ---
History of Present Illness Informant: Patient Onset: Days - 4 days Activity at onset: Light Activity, Rest Timing: Continuous Quality: Sharp, Stabbing Location: Left Chest Current Severity: Moderate Maximum Severity: Moderate Worsened By: Movement of Torso, Breathing Relieved By: Rest Associated Symptoms: Lightheadedness. Negative for: Nausea, Vomiting, Diaphoresis, Dyspnea, Cough, Fever, Acid Reflux, Palpitations Narrative: 59-year-old female with a history of rib fractures and pleurisy presents to the emergency department with left-sided pleuritic chest pain that she has now had for 4 days. Worse with coughing and breathing as well as movement palpation and deep inspiration. No fevers or chills no shortness of breath no hemoptysis. She does feel somewhat lightheaded when she has pain with breathing that she attributes to not breathing is deeply secondary to the pain. No recent travel or surgery or history of DVT or PE. She is not on any control. She did have an outpatient chest x-ray ordered by her doctor yesterday that was unremarkable. She does not have any leg pain or swelling she has no nausea vomiting or diarrhea she has no abdominal pain or back pain she has no urinary symptoms she has no symptoms of bleeding. She does have a history of peptic ulcer disease remotely she is not currently on any medications for this. 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 She has been using Tylenol intermittently for her pain which she states does not significantly help and she does not take NSAIDs due to her history of stomach ulcer. She has not noticed a rash she has not suffered any trauma her last injury to her ribs was about a year ago. Prior Similar Symptoms: Yes, - - with pleurisy Recent Illness/Hospitalization: No CVD Risk Factors: Negative for: Hypertension, Diabetes, Hypercholesterolemia, Family History 1' </=55, Smoking PE Risk Factors: Negative for: Recent Travel/Surgery, Recenet Immobilization, Prior DVT or PE, Cancer, OCP + Smoking + >/=35 TAD Risk Factors: Negative for: Marfan's Syndrome, Hypertension, Family History <Eusebio Amaral - Last Filed: 06/23/19 11:45> <Juliane Jones - Last Filed: 06/23/19 12:17> Chief Complaint: Shortness of Breath Past Medical History Prior records reviewed: Yes Past Medical History: - - peptic ulcer disease, WPW Surgical History: - - Cardiac ablation for WPW Lives: With Family Smoking Status: Former smoker Alcohol: None Drugs: None <CristinEusebio - Last Filed: 06/23/19 11:45> <JonesJuliane - Last Filed: 06/23/19 12:17> - Allergies and Home Meds Allergies/Adverse Reactions: Allergies ciprofloxacin [From Cipro] Allergy (Verified 06/23/19 10:30) Rash mycin's Adverse Reaction (Uncoded 06/23/19 10:30) disoriented Primary Care Physician: Carri Jackson MD [STAFF PHYSICIAN] - Review of Systems All systems negative except as indicated General: Denies: Chills, Fever Eyes: Denies: Visual changes - bilaterally, Blurred Vision - bilaterally, Diplopia ENT: Denies: Rhinorrhea, Sore throat Cardiovascular: Reports: Chest pain. Denies: Palpitations, Heart racing Respiratory: Reports: -. Denies: Dyspnea, Cough, Sputum, Dyspnea on exertion, Orthopnea, Paroxysmal nocturnal dyspnea Gastrointestinal: Denies: Abdominal pain, Nausea, Vomiting, Diarrhea Genitourinary: Denies: Dysuria, Hematuria, Frequency Musculoskeletal: Denies: Myalgias, Arthralgias, Neck pain, Back pain, Swelling, Extremity Pain Skin: Denies: Rash, Abscess, Abrasions, Wounds Neurological: Denies: Headache, Weakness, Parasthesia, Numbness Psych: Denies: Depression, Anxiety <Eusebio Amaral - Last Filed: 06/23/19 11:45> Physical Exam Vital Signs/Narrative: Vital Signs Temp Pulse Resp BP Pulse Ox 06/23/19 10:27 98.6 F 68 20 H 136/78 H 99 Inital Vital Signs reviewed: Yes General: Well nourished, Well developed, No Acute Distress Head: Normocephalic, Atraumatic Eyes: Perrl, EOMI ENT: Moist mucous membranes Neck: Supple, Nontender, No lymphadenopathy, No JVD Cardiovascular: Regular rate, Regular rhythm, No murmurs Respiratory: No distress, CTA bilaterally, Chest tenderness - Left lower anterior ribs tender to palpation. no crepitus, bruising, skin changes or rash Abdomen: Soft, Nontender, Nondistended, Normal bowel sounds, No masses Back: Nontender, Normal Inspection. Negative for: CVA tenderness Extremities: Nontender, No edema Skin: Normal color, No rash Neurological: Alert, Oriented x3 Psychological: Normal affect, Normal Mood <Eusebio Amaral - Last Filed: 06/23/19 11:45> Vital Signs/Narrative: Vital Signs Temp Pulse Resp BP Pulse Ox 06/23/19 10:27 98.6 F 68 20 H 136/78 H 99 <Jones,Juliane - Last Filed: 06/23/19 12:17> Diagnostic/Tx/Re-eval - Rhythm Strip Rhythm Strip: Sinus Rhythm Rate: 50 Ectopy: None - EKG Initial EKG Interpretation: Sinus Rhythm, No Acute Injury Pattern Prior: Unchanged DREW Risk: No Positive DREW Elements Score: 0 - Medical Decision Making Patient presents to the emergency department with left-sided rib pain she states that she has had pleurisy in the past and that this felt similar. She had an outpatient chest x-ray done yesterday that was unremarkable but continued to have pain which prompted her visit to the emergency department here today. On exam the patient has normal stable vital signs. Her EKG was normal sinus rhythm with a rate of 50 bpm. There were no ischemic changes noted. Patient did not have another chest x-ray done as we were able to review her x-ray yesterday that was done here as an outpatient. This was unremarkable. We did perform further work-up including a CBC, BMP and troponin. All of these were unremarkable. Patient was not PERC negative due to age so we performed a d-dimer which was negative as well. Urinalysis was negative. Patient remains hemodynamically stable. She is not tachycardic. Her pulse ox is 100% on room air. This is likely pleurisy. We will treat with prednisone. First dose of prednisone was given in the emergency department. She will be given a short burst of prednisone for home. She was given a return to work note. She was advised to return for worsening symptoms otherwise follow-up as an outpatient with her primary care physician. Patient did not meet criteria for testing from the coronavirus and at this time her symptoms are not consistent with COVID-19 . <Eusebio Amaral - Last Filed: 06/23/19 11:45> - Medical Decision Making Patient seen and evaluated with physicians assistant press operator. Patient interviewed and examined independently. Patient presents with a several day history of left sided pleuritic chest pain. History of pleurisy several years ago that feels similar. No significant shortness of breath but does have increased pain with deep breath. No fever. No cough. Patient was seen by PCP yesterday and had an outpatient chest x-ray that was unremarkable. Vital signs unremarkable. Patient sitting upright in bed no acute distress. Head neck examination normal. Heart is regular rate and rhythm. Lung sounds are clear. Mild left anterior chest wall tenderness. No crepitus. Abdomen is soft nontender. Lower extremity examination was no calf tenderness or edema. EKG is unremarkable. Chest x-ray from yesterday is reviewed. Labs are unremarkable. Patient is reassured with these findings. She will be given a course of steroids. Disposition: Discharge Impression: Pleurisy <Juliane Jones - Last Filed: 06/23/19 12:17> ED Disposition <Eusebio Amaral - Last Filed: 06/23/19 11:45> <Juliane Jones - Last Filed: 06/23/19 12:17> - Plan for ED Patient: Disposition: Home or Assisted Living Diagnosis: Pleurisy without effusion Instructions: ED Chest Pain Pleurisy Prescriptions: Prednisone [Deltasone] 40 mg PO DAILY #10 tab Transmission Status: Received by [facility] #[id number] Referrals: Carri Jackson MD [STAFF PHYSICIAN] -
[2019-06-23 11:17] LABS: Absolute Lymphocyte Count 1.54 X10^3/uL (0.83-4.51); Absolute Neutrophil Count 2.5 X10^3/uL (2.0-7.7); Basophil# 0.03 X10^3/uL; Basophil% 0.7 % (0-1); Eosinophils% 2.2 % (0-5); Hematocrit 43.9 % (37-47); Hemoglobin 14.2 g/dL (12.0-15.0); Lymphocyte # 1.54 X10^3/ul (4.0); Lymphocyte % 33.4 % (19-41); Mean Corp Hgb Conc 32.3 g/dL (32-36); Mean Corpuscular Hgb 30.3 pg (27.0-32.0); Mean Corpuscular Volume 93.8 fL (81-99); Mean Platelet Vol. 9.4 fl (6.2-12.0); Monocyte# 0.42 X10^3/uL; Monocyte% 9.1 % (0-10); NRBC Flagged by Analyzer 0 % (0-5); Neutrophil % 54.2 % (47-70); Platelet Count 240 K/mm3 (150-450); RBC Distribution Width CV 13.5 % (11.6-14.6); RBC Distribution Width SD 46.1 fl (35.1-43.9); Red Blood Count 4.68 M/mm3 (4.2-5.4); White Blood Count 4.6 K/mm3 (4.4-11.0)
[2019-06-23 11:24] VITALS: O2SAT 98
[2019-06-23 11:26] LABS: Bacteria 0 SEEN /hpf (None Seen); Mucous, Urine 0 SEEN /hpf (<or=2+); Red Blood Cells-Urine 0 SEEN /hpf (0-5); White Blood Cells 0 SEEN /hpf (0-5)
[2019-06-23 11:33] LABS: Anion Gap 6 (5-15); BUN 22 mg/dL (7-18); BUN/Creat Ratio 28.2 RATIO (10-20); Calcium,Total 9.5 mg/dL (8.5-10.1); Chloride 106 mmol/L (98-107); Creatinine, Serum 0.78 mg/dL (0.55-1.02); EST Glomerular Filtration Rate 80 mL/min (>60); Est Glom Filt Rate - Afr Amer 97 mL/min (>60); Estimated Creatinine Clearance 63.45 ml/min; Glucose 100 mg/dL (74-106); Sodium Level 140 mmol/L (136-145)
[2019-06-23 11:34] LABS: Color, Urine Yellow (Yellow); Glucose, Dipstick Normal (Normal); Ketone-Dipstick Negative (Negative); Leukocyte Esterase-Dipstick Negative /ul (Negative); Nitrite-Dipstick Negative (Negative); Occult Blood-Urine Negative /ul (Negative); Protein-Dipstick Negative (Negative); Urine Bilirubin Dipstick Negative (Negative); Urine Clarity Sl. Cloudy (Clear); Urine Urobilinogen Normal (Normal)
[2019-06-23 11:36] LABS: D-Dimer Quantitative (DVT/PE) 0.33 FEU/ug/m (0.27-0.49)
[2019-06-23 11:40] LABS: Squamous Epithelial Cells - UA 0-5 SEEN /hpf (5-10)
[2019-06-23] MEDS: predniSONE 20 MG Tablet 40 MG PO (11:58)
== END 2019-06-23 11:58 | disposition home or self-care (01) ==
PROVIDERS: Emergency Provider Physician Assistant Medical; PCP Family Medicine
DX: R09.1 Pleurisy (principal); Z87.891 Personal history of nicotine dependence
CPT/HCPCS: 80048; 81001; 84484; 85025; 85379; 93005; 99285; A4216

== ENCOUNTER 2021-01-23 11:54 | Emergency (ER) | payer MEDICAID, SELFPAY ==
[2021-01-23 11:55] VITALS: BP 140/96; PULSE 100; RESP 16; TEMP 37.2; O2SAT 96; BMI 36.7
--- NOTE | 2021-01-23 12:15 | RAD_ITS ---
STUDY: X-RAY CHEST REASON FOR EXAM: Female, 60 years old. Chest pain TECHNIQUE: Single AP portable view of the chest. COMPARISON: Comparison is made with prior study dated 06/22/2019. FINDINGS: EKG electrodes are seen. There is hyperinflation of the lungs consistent with chronic obstructive lung disease (COPD). There is no demonstrated pleural abnormality. Normal size heart. Normal mediastinum and eagle. Normal visualized pulmonary arteries. Normal visualized aortic arch and descending thoracic aorta. Normal visualized thoracic spine. Normal visualized ribs, clavicles, and shoulders. There is no demonstrated abnormality of the visualized soft tissue structures of the upper abdomen. RAD/Chest 1 View (Portable) IMPRESSION: Hyperinflation. The lungs are clear. Electronically Signed: Tan Blair MD at 13:05 EST , Service support ,
--- NOTE | 2021-01-23 12:15 | EKG12_ITS ---
Test Reason : CP Blood Pressure : / mmHG Vent. Rate : 085 BPM Atrial Rate : 085 BPM P-R Int : 180 ms QRS Dur : 080 ms QT Int : 378 ms P-R-T Axes : 050 048 045 degrees QTc Int : 449 ms Normal sinus rhythm Normal ECG Confirmed by ROBINSON RUIZ, MICHELLE ([id number]), book editor IMMANUEL RIBERA ([id number]) on 01/24/2021 11:33:27 AM Referred By: JOSE GUADALUPE Confirmed By:MICHELLE BOWERS MD
--- NOTE | 2021-01-23 12:15 | EDS_ITS ---
HPI History of Present Illness Chief Complaint: Chest Pain Informant: patient Narrative Narrative: 60-year-old female states that on Thursday night she began to have some significant reflux symptoms. She suddenly felt bloated and then began to vomit. Once her vomiting got better she had a cough and felt fatigued had soreness along her ribs and into her back. She states that Thursday she took it easy because she did not feel the best the past couple days she has felt fine. She mentioned it to her daughter who is a nurse yesterday she promised that she would go to the doctor is she is concerned that she had a heart attack. Patient states that she tried to call her previous primary care provider whom she has not seen for about 2 years due to the pandemic and was referred to urgent care so she went to urgent care and they referred her to emergency. Patient states that she is currently not on any medications. She quit smoking greater than 30 years ago. She has no change in exercise tolerance. [facility] Medical History (Updated 01/23/21 @ 13:[address] Mal Oliveira DO) Former smoker Irregular heart beat Seizures Home Medications pantoprazole [Protonix] 20 mg PO DAILY #30 tab 01/23/21 [Rx Last Taken Unknown] Allergy/AdvReac Type Severity Reaction Status Date / Time ciprofloxacin [From Cipro] Allergy Rash Verified 01/23/21 11:59 mycin's AdvReac disoriented Uncoded 01/23/21 11:59 Surgical History (Updated 01/23/21 @ 12:38 by Julian Jj) History of cardiac radiofrequency ablation Social History (Updated 01/23/21 @ 12:[address] Mal Oliveira DO) Smoking Status: Former smoker substance use type: does not use ROS ROS ED Constitutional Constitutional ED: Denies chills, fever(s) or weight loss Eyes Eyes: Denies change in vision or diplopia ENT ENT ED: Denies ear pain, rhinorrhea or sore throat Cardiovascular Cardiovascular: Reports chest pain; Denies orthopnea, palpitations or racing heartbeat Respiratory/Chest Respiratory/Chest: Reports cough; Denies dyspnea or orthopnea Gastrointestinal Gastrointestinal: Reports abdominal pain, nausea and vomiting; Denies diarrhea Genitourinary Genitourinary ED: Denies dysuria, hematuria or urinary frequency Musculoskeletal Musculoskeletal: Denies arthralgias or myalgias Integumentary Denies abscess or rash Neurologic Neurologic: Denies headache(s) or weakness Psychiatric Psychiatric: Denies anxiety, depression, suicidal ideation or suicidal thoughts Endocrine Endocrinology: Denies polydipsia, polyphagia or polyuria Allergic/Immunologic Allergic/Immunologic ED: Denies mouth swelling, tongue swelling or urticaria EXAM Physical Exam Const Vital Signs: 01/23/21 11:55 01/23/21 12:31 01/23/21 12:32 Temperature 99.0 F Temperature Source Temporal Pulse Rate 100 86 89 Respiratory Rate 16 15 18 Blood Pressure 140/96 H 133/87 H 133/87 H Blood Pressure Mean 110 102 102 Pulse Ox 96 Oxygen Delivery Method Room Air Room Air Positive well nourished, well developed and obese General Appearance ED: well developed Nutritional Appearance: obese HEENT Reports normocephalic, head/scalp atraumatic, TM's clear and moist mucous membranes normocephalic and atraumatic Tympanic Membrane ED: Yes TM's clear Eyes PERRL and EOMs intact bilaterally Neck no lymphadenopathy, supple and no JVD Chest Wall Chest Narrative: Mild soreness of the lower left ribs Resp normal respiratory effort and clear to auscultation bilaterally Cardio regular rate, regular rhythm and no murmurs GI normal to inspection, nondistended, normoactive bowel sounds and non-tender Palpation: soft Back/Spine no CVA tenderness and normal ROM Extremity normal to inspection General Extremety ED: Negative for edema General Extremity: Negative for edema Neuro oriented x3 and CN's II-XII intact bilaterally Sensorium / Orientation: alert Motor Exam: strength 5/5 throughout Psych mental status grossly normal Mood & Affect: Negative for depressed or tearful Skin no rashes or lesions noted and no wounds Heart Score History: Slightly/Non-Suspicious ECG: Normal Age: >45 - <65 years Risk Factors: 1 or 2 Risk Factors Troponin: </= Normal Limit Score: 2 MDM MDM MDM Narrative Medical decision making narrative: Patient's troponin is 4. My interpretation of chest x-ray is no acute disease. EKG is a normal sinus rhythm with no concerning features of ACS. I think the history of her symptoms is not that consistent with ACS. Certainly if she had a significant event on Thursday into Thursday I would expect expect her troponin to still be elevated. At this point I think the patient could benefit from some Protonix. She will be discharged home with supportive care return if worsening or concerns Lab Data Attestation: I reviewed the patient's lab results. Labs: Laboratory Results - last 24 hr 01/23/21 01/23/21 12:30 12:30 WBC 6.0 RBC 4.37 Hgb 13.4 Hct 40.5 MCV 92.7 MCH 30.7 MCHC 33.1 RDW Std Deviation 44.7 H RDW Coeff of Asha 13.1 Plt Count 271 MPV 9.1 Immature Gran % (Auto) 0.200 Neut % (Auto) 65.7 Lymph % (Auto) 20.7 [place] % (Auto) 9.2 Eos % (Auto) 3.7 Baso % (Auto) 0.5 Absolute Neuts (auto) 3.9 Absolute Lymphs (auto) 1.24 Nucleated RBC % 0 Sodium 140 Potassium 3.9 Chloride 107 Carbon Dioxide 27.0 Anion Gap 6 BUN 14 Creatinine 0.80 Estim Creat Clear Calc 61.09 Est GFR (MDRD) Af Amer 94 Est GFR (MDRD) Non-Af 78 BUN/Creatinine Ratio 17.5 Glucose 106 Calcium 9.3 Troponin I High Sens 4 Radiography Diagnostic Testing: Clinical Impression(s) from Imaging Studies Chest X-Ray 01/23/21 12:15 IMPRESSION: Hyperinflation. The lungs are clear. Electronically Signed: Tan Blair MD at 13:05 EST , Service support , EKG Initial EKG: Attestation: I personally reviewed and interpreted this EKG as follows: Comments: Normal sinus rhythm with a ventricular rate of 85 bpm Discharge Plan Triage Chief Complaint: Chest Pain ED Provider: Mal Oliveira Dx/Rx/DC Orders Clinical Impression: Chest pain Instructions: ED Chest Pain, Noncardiac, ED GERD (Adult) Prescriptions: New pantoprazole [Protonix] 20 mg tablet,delayed release (DR/EC) 20 mg PO DAILY Qty: 30 RF: 0 Primary Care Provider: Care Physician,No Primary Referrals: Care Physician,No Primary [Primary Care Provider] - Activity Restrictions/Additional Instructions: Please reestablish primary care Disposition Disposition: Home, Self Care
[2021-01-23 12:31] VITALS: BP 133/87; PULSE 86; RESP 15
[2021-01-23 12:32] VITALS: BP 133/87; PULSE 89; RESP 18
[2021-01-23 12:39] LABS: Absolute Lymphocyte Count 1.24 X10^3/uL (0.83-4.51); Absolute Neutrophil Count 3.9 X10^3/uL (2.0-7.7); Basophil# 0.03 X10^3/uL; Basophil% 0.5 % (0-1); Eosinophil# 0.22 X10^3/uL; Eosinophils% 3.7 % (0-5); Hematocrit 40.5 % (37-47); Hemoglobin 13.4 g/dL (12.0-15.0); Lymphocyte # 1.24 X10^3/ul (0.83-4.51); Lymphocyte % 20.7 % (19-41); Mean Corp Hgb Conc 33.1 g/dL (32-36); Mean Corpuscular Hgb 30.7 pg (27.0-32.0); Mean Corpuscular Volume 92.7 fL (81-99); Mean Platelet Vol. 9.1 fl (6.2-12.0); Monocyte# 0.55 X10^3/uL; Monocyte% 9.2 % (0-10); NRBC Flagged by Analyzer 0 % (0-5); Neutrophil # 3.94 X10^3/uL (2.7-7.7); Neutrophil % 65.7 % (47-70); Platelet Count 271 K/mm3 (150-450); RBC Distribution Width CV 13.1 % (11.6-14.6); RBC Distribution Width SD 44.7 fl (35.1-43.9); Red Blood Count 4.37 M/mm3 (4.2-5.4)
[2021-01-23 13:01] LABS: Anion Gap 6 (5-15); BUN 14 mg/dL (7-18); BUN/Creat Ratio 17.5 RATIO (10-20); Calcium,Total 9.3 mg/dL (8.5-10.1); Chloride 107 mmol/L (98-107); EST Glomerular Filtration Rate 78 mL/min (>60); Est Glom Filt Rate - Afr Amer 94 mL/min (>60); Estimated Creatinine Clearance 61.09 ml/min; Glucose 106 mg/dL (74-106); Potassium 3.9 mmol/L (3.5-5.1); Sodium Level 140 mmol/L (136-145); Troponin-I HS 4 pg/mL (3.0-54.0)
[2021-01-23 13:43] VITALS: BP 125/83; PULSE 75; RESP 15; O2SAT 98
== END 2021-01-23 13:44 | disposition home or self-care (01) ==
PROVIDERS: Emergency Provider Emergency Medicine
DX: R07.9 Chest pain, unspecified (principal); E66.9 Obesity, unspecified; Z87.891 Personal history of nicotine dependence
CPT/HCPCS: 71045; 80048; 84484; 85025; 93005; 99284; A4216

== ENCOUNTER 2022-03-22 21:31 | Emergency (ER) | payer MEDICAID, SELFPAY ==
[2022-03-22 21:32] VITALS: BP 148/88; PULSE 93; RESP 15; TEMP 35.6; O2SAT 94; BMI 35.6
--- NOTE | 2022-03-22 21:42 | EKG12_ITS ---
Test Reason : PALPS Blood Pressure : / mmHG Vent. Rate : 083 BPM Atrial Rate : 083 BPM P-R Int : 154 ms QRS Dur : 076 ms QT Int : 384 ms P-R-T Axes : 051 057 056 degrees QTc Int : 451 ms Normal sinus rhythm Normal ECG Confirmed by DANISH RUIZ, THOMAS ([id number]), rewrite editor IMMANUEL RIBERA ([id number]) on 03/24/2022 1:49:02 PM Referred By: MARY Confirmed By:THOMAS PENG MD
--- NOTE | 2022-03-22 21:53 | CT_ITS ---
INDICATION: hypertensive headache EXAMINATION: CT BRAIN - CT Head or Brain W/O Contrast Injection TECHNIQUE: Multiple axial images were obtained of the head without intravenous contrast. A radiation dose optimization technique was used for this scan. IV Contrast dosage and agent: None. COMPARISON: FINDINGS: BRAIN PARENCHYMA: No intra- or extra-axial hemorrhage. No evidence of acute infarct. No intracranial mass or mass effect. There is preservation of the ortega/white matter interface. Posterior fossa structures are unremarkable. CSF SPACES: Minor atrophy and periventricular white matter ischemic changes. No hydrocephalus. Basal cisterns are patent. CALVARIUM, SKULL BASE, PARANASAL SINUSES AND MASTOID AIR CELLS: Clear. No discrete lytic or blastic abnormalities. ORBITS: Both globes, extraocular muscles, optic nerves and retrobulbar fat appear unremarkable. CT/Brain/Head without Contrast IMPRESSION: Minor atrophy and periventricular white matter ischemic change. No acute bleed. If concern for acute infarct MRI recommended Electronically Signed: Rik Miller MD at 22:37 EST ,
--- NOTE | 2022-03-22 21:56 | ED.VIS.CHEST ---
HPI History of Present Illness Chief Complaint: Palpitations Detail of Chief Complaint: Blood pressure with headaches for the last 3 days. Informant: patient and family Onset/Context/Timing Onset: Days Activity at onset: gradual Timing: Continuous Narrative Narrative: 61-year-old female with a history of Atfma-Kiwypfqas-Lspsz that she had ablated about 10 years ago at [facility]. She does not see a doctor currently has no primary care physician. Is on no medications. States her blood pressures been running 190/90, 160/110 and has had a frontal headache for last 3 days. No trouble moving her arms and legs. She is on no blood thinners. No nausea or vomiting. No fever. She has never been on blood pressure medications. She denies any chest pain or shortness of breath. Prior Similar Symptoms: No Recent Illness/Hospitalization: No CVD Risk Factors: Negative for Hypertension, Diabetes or Hypercholesterolemia PE Risk Factors: Negative for Recent Travel/Surgery, Recent Immobilization, Prior DVT or PE, Cancer or OCP + Smoking + >/=35 TAD Risk Factors: Negative for Marfan's Syndrome PFSH PFS Medical History Former smoker Irregular heart beat Seizures Home Medications pantoprazole 20 mg tablet,delayed release (Protonix) 20 mg PO DAILY #30 tabs 01/23/21 [Rx Last Taken Unknown] lisinopril 10 mg tablet 10 mg PO DAILY 30 days #30 tabs 03/22/22 [Rx Last Taken Unknown] Allergy/AdvReac Type Severity Reaction Status Date / Time ciprofloxacin [From Cipro] Allergy Rash Verified 03/22/22 21:35 mycin's AdvReac disoriented Uncoded 03/22/22 21:35 Surgical History History of cardiac radiofrequency ablation Social History Smoking Status: Former smoker substance use type: does not use ROS ROS ED ROS Narrative Headache. Elevated blood pressure. Review of Systems ROS Unobtainable: Denies due to encephalopathy Constitutional Constitutional ED: Denies chills or fever(s) Eyes Eyes: Reports none; Denies blurry vision ENT ENT ED: Denies ear pain or sore throat Cardiovascular Cardiovascular: Denies as per HPI, chest pain or palpitations Respiratory/Chest Respiratory/Chest: Denies dyspnea Gastrointestinal Gastrointestinal: Denies abdominal pain, melena, nausea or vomiting Genitourinary Genitourinary ED: Denies dysuria or hematuria Musculoskeletal Musculoskeletal: Denies arthralgias Integumentary Denies abscess Neurologic Neurologic: Reports headache(s) Psychiatric Psychiatric: Denies anxiety Hematologic/Lymphatic Hematologic/Lymphatic: Denies easy bleeding Allergic/Immunologic Allergic/Immunologic ED: Denies mouth swelling, tongue swelling or urticaria EXAM Physical Exam Narrative Exam Narrative: 61-year-old female initial blood pressure 148/88. Pulse ox 94% on room air no signs hypoxia. She is in no distress. H EENT exam unremarkable. Neck nontender. No meningismus. Lungs clear to auscultation bilaterally. Heart regular rhythm rate about 90 no murmur. Abdomen soft nontender normal bowel sounds no peritoneal signs. Patient moving all 4 extremities. 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 Dorsi plantarflexion intact. Fingertip to nose within normal limits. Neurologic exam normal. NIH is 0. Normal strength. Normal range of motion. Awake alert. Answering questions. Following commands. No facial droop. Normal speech. Const Vital Signs: 03/22/22 21:32 03/22/22 22:00 03/22/22 22:11 Temperature 96.1 F L Temperature Source Temporal Pulse Rate 93 79 Respiratory Rate 15 15 Blood Pressure 148/88 H 146/79 H Blood Pressure Mean 108 101 Pulse Ox 94 99 Oxygen Delivery Method Room Air Room Air Room Air Positive well nourished, well developed and obese; Negative for cachectic, contractures or unkempt General Appearance ED: well developed and NAD; Negative for unkempt, cachectic, contractures or pallor Nutritional Appearance: obese; Negative for cachectic HEENT Reports moist mucous membranes; Denies dry mucous membranes normocephalic and atraumatic; Negative for trauma or tenderness Mouth ED: No dry mucous membranes Mouth: No dry mucous membranes Eyes PERRL and EOMs intact bilaterally General Eye ED: Negative for pale conjunctiva, scleral icterus or other Neck no lymphadenopathy, supple and no JVD General: Negative for tenderness Chest Wall inspection of chest normal and palpation of chest normal Chest: Negative for tenderness Resp normal respiratory effort and clear to auscultation bilaterally Effort and Inspection: respiratory distress; Negative for pain with movement or other Auscultation: Negative for rales, rhonchi or wheezes Cardio regular rate, regular rhythm, S1 normal heart sound, S2 normal heart sound and no murmurs Rate: Negative for bradycardia or tachycardic Rhythm: Negative for abnormal rhythm GI normal to inspection, nondistended, normoactive bowel sounds, soft to palpation, non-tender, non-distended and no masses Auscultation: Negative for hyperactive bowel sounds Back/Spine no CVA tenderness and no thoracic nor lumbar tenderness General Back: Negative for CVA tenderness Cervical Spine: Negative for cervical spine tenderness Extremity normal to inspection General Extremety ED: Negative for edema, pulses abnormal or tenderness General Extremity: Negative for edema or pulses abnormal Neuro oriented x3, CN's II-XII intact bilaterally and no sensory deficits noted Sensorium / Orientation: awake, alert, oriented to person, oriented to place and oriented to time; Negative for confused, lethargic, stuporous or other Motor Exam: strength 5/5 throughout; Negative for general weakness or strength abnormal Psych mental status grossly normal Appearance: Negative for unkempt Attitude: No agitated Mood & Affect: Negative for depressed, anxious or tearful Skin no rashes or lesions noted and no wounds General Skin Exam: Negative for jaundice or pallor Rashes: No rashes noted Trauma: Negative for abrasion or laceration MDM MDM MDM Narrative Medical decision making narrative: 61-year-old does not go to the doctor. Appears it is elevated blood pressure probably has undiagnosed hypertension. Also complaining of a headache. Exam benign. CAT scan to be obtained due to headache and elevated blood pressure. She will be treated with p.o. Tylenol and lisinopril for her blood pressure and headache. Screening labs and EKG will be obtained. Repeat exam patient doing well at 10:42 PM. Current blood pressure is 142/82. She is resting comfortably. Exam is unchanged. Neurologic exam is normal. She and I went over all of her lab test with family at bedside. She will be discharged to home. Started on lisinopril 10 mg once a day take at night. Follow-up with a local primary care physician she has appointment with someone in [place] in about 2 to 3 weeks. Watch her blood pressures twice daily. Hold her blood pressure medication if running below 120. Lab Data Attestation: I reviewed the patient's lab results. Lab results narrative: CBC unremarkable. White count of 7. H&H of 13.4 and 41. Platelets 276. Chemistries unremarkable gap is 6 BUN 23 creatinine 1.7. Glucose 103. Troponin normal at 4. Return if worse. Labs: Laboratory Results - last 24 hr 03/22/22 03/22/22 21:50 21:50 WBC 7.6 RBC 4.48 Hgb 13.4 Hct 41.2 MCV 92.0 MCH 29.9 MCHC 32.5 RDW Std Deviation 47.8 H RDW Coeff of Asha 14.1 Plt Count 276 MPV 9.4 Immature Gran % (Auto) 0.100 Neut % (Auto) 60.3 Lymph % (Auto) 27.9 Mcminn % (Auto) 8.9 Eos % (Auto) 2.1 Baso % (Auto) 0.7 Absolute Neuts (auto) 4.6 Absolute Lymphs (auto) 2.11 Nucleated RBC % 0 Sodium 140 Potassium 3.7 Chloride 108 H Carbon Dioxide 26.0 Anion Gap 6 BUN 23 H Creatinine 0.79 Estim Creat Clear Calc 58.40 Est GFR (MDRD) Af Amer 95 Est GFR (MDRD) Non-Af 78 BUN/Creatinine Ratio 29.2 H Glucose 103 Calcium 9.4 Troponin I High Sens 4 Radiography Chest X-Ray - ED: 1 View, 2 View, Read by ED Physician, Heart, Lungs, Mediastinum, Bony Structures, No Acute Disease and Chronic Changes Diagnostic Testing: Clinical Impression(s) from Imaging Studies Brain CT 03/22/22 21:53 IMPRESSION: Minor atrophy and periventricular white matter ischemic change. No acute bleed. If concern for acute infarct MRI recommended Electronically Signed: Rik Miller MD at 22:37 EST , Chest X-Ray 03/22/22 22:22 IMPRESSION: No radiographic evidence of acute cardiopulmonary disease. Electronically Signed: Rik Miller MD at 22:38 EST , Chest x-ray, portable, single view, interpreted by myself shows no acute abnormality. Normal cardiac silhouette. Normal mediastinum. Normal lung gabriel. Rhythm Strip Rhythm Strip: Sinus Rhythm Rate: 83 Ectopy: None EKG Initial EKG: Attestation: I personally reviewed and interpreted this EKG as follows: Interpretation: Sinus Rhythm and No Acute Injury Pattern Comments: Normal sinus rhythm rate 83 no acute signs of DC or ischemia. Discharge Plan Triage Chief Complaint: Palpitations Other Complaint: Headache ED Provider: Frank Rodriguez Dx/Rx/DC Orders Clinical Impression: Hypertension, Headache Instructions: ED Hypertension New Begin Treatment Prescriptions: New lisinopril 10 mg tablet 10 mg PO DAILY 30 Days Qty: 30 0RF Rx Instructions: Take 1 hour prior to bedtime. Check your blood sugars twice a day for the next week. No Action pantoprazole [Protonix] 20 mg tablet,delayed release (DR/EC) 20 mg PO DAILY Qty: 30 0RF Primary Care Provider: Care Physician,No Primary Referrals: Luis Tyler MD [Med Staff - [employer]erg[employer] Quality Technician] - As soon as possible Care Physician,No Primary [Primary Care Provider] - Activity Restrictions/Additional Instructions: Call and follow-up with a local primary care physician. Call the office to get an appointment. Lisinopril once a day take at night 1 hour before bedtime. Start tomorrow night. Check your blood sugars twice daily in the morning and the evening to see where they are going. If they are running below 120 can hold the blood pressure medication. I would log your blood pressures for the next week and show them to the primary care physician to follow-up with so they can decide if they want to adjust blood pressure medication I put you on or change it. Disposition Disposition: Home, Self Care
[2022-03-22 22:00] VITALS: BP 146/79; PULSE 79; RESP 15; O2SAT 99
[2022-03-22 22:03] LABS: Absolute Lymphocyte Count 2.11 X10^3/uL (0.83-4.51); Absolute Neutrophil Count 4.6 X10^3/uL (2.0-7.7); Basophil# 0.05 X10^3/uL; Basophil% 0.7 % (0-1); Eosinophil# 0.16 X10^3/uL; Eosinophils% 2.1 % (0-5); Hematocrit 41.2 % (37-47); Hemoglobin 13.4 g/dL (12.0-15.0); Lymphocyte # 2.11 X10^3/ul (0.83-4.51); Lymphocyte % 27.9 % (19-41); Mean Corp Hgb Conc 32.5 g/dL (32-36); Mean Corpuscular Hgb 29.9 pg (27.0-32.0); Mean Platelet Vol. 9.4 fl (6.2-12.0); Monocyte# 0.67 X10^3/uL; Monocyte% 8.9 % (0-10); NRBC Flagged by Analyzer 0 % (0-5); Neutrophil # 4.57 X10^3/uL (2.7-7.7); Neutrophil % 60.3 % (47-70); Platelet Count 276 K/mm3 (150-450); RBC Distribution Width CV 14.1 % (11.6-14.6); RBC Distribution Width SD 47.8 fl (35.1-43.9); Red Blood Count 4.48 M/mm3 (4.2-5.4); White Blood Count 7.6 K/mm3 (4.4-11.0)
[2022-03-22] MEDS: Acetaminophen 500 MG Tablet 1000 MG PO (22:09)
[2022-03-22] MEDS: Lisinopril 10 MG Tablet PO (22:15)
--- NOTE | 2022-03-22 22:22 | RAD_ITS ---
INDICATION: chest pain EXAMINATION/TECHNIQUE: X-RAY - XR Chest 1 View COMPARISON: January 23, 2021 FINDINGS: LINES/DEVICES: None. LUNGS: No consolidation, edema or effusion. No pneumothorax. MEDIASTINUM AND CARDIOVASCULAR STRUCTURES: Cardiac silhouette not enlarged. Central airways and mediastinal contour are unremarkable. BONES AND SOFT TISSUES: Unremarkable. RAD/Chest 1 View (Portable) IMPRESSION: No radiographic evidence of acute cardiopulmonary disease. Electronically Signed: Rik Miller MD at 22:38 EST ,
[2022-03-22 22:28] LABS: Anion Gap 6 (5-15); BUN 23 mg/dL (7-18); BUN/Creat Ratio 29.2 RATIO (10-20); Calcium,Total 9.4 mg/dL (8.5-10.1); Chloride 108 mmol/L (98-107); Creatinine, Serum 0.79 mg/dL (0.55-1.02); EST Glomerular Filtration Rate 78 mL/min (>60); Est Glom Filt Rate - Afr Amer 95 mL/min (>60); Glucose 103 mg/dL (74-106); Potassium 3.7 mmol/L (3.5-5.1); Sodium Level 140 mmol/L (136-145); Troponin-I HS (w/2H Reflex) 4 pg/mL (3.0-54.0)
[2022-03-22 23:59] LABS: Reflex Troponin-HS? (from REC) Y
== END 2022-03-22 22:54 | disposition home or self-care (01) ==
PROVIDERS: Emergency Provider Emergency Medicine; Visit Provider Emergency Medicine
DX: I10 Essential (primary) hypertension (principal); R51.9 Headache, unspecified; E66.9 Obesity, unspecified; Z87.891 Personal history of nicotine dependence
CPT/HCPCS: 70450; 71045; 80048; 84484; 85025; 93005; 99285